=== PATIENT | female | born 1945 | race Caucasian/White ===

== ENCOUNTER 2016-12-31 17:53 | Emergency (ER) | payer MEDICARE, BC ==
[~2016-12-31] VITALS: Ht 160 cm; Wt 53.1 kg
[~2016-12-31 17:53] MED LIST: BENZ100C PO; DEXT15CA10 PO; HYDR-971 PO; ONDA4TAB10 SL; POLY119P4 PO
[2016-12-31 18:06] VITALS: BP 143/89
--- NOTE | 2016-12-31 20:33 | PHYS DOC ---
Past Medical History Past Medical History: Other Additional Past Medical Histor: lymphoma. L knee sweeling from Fall a week ago. cholecystectomy. Past Surgical History: No Surgical History Additional Past Surgical Histo: unknown back surgery Alcohol Use: None Drug Use: None Adult General Chief Complaint Chief Complaint: KNEE INJURY [facility] Patient is a 71 year old female who presents with left hand pain and left medial knee pain after a mechanical fall one week ago. States she has been able to use her extremities since that time, but has persistent mid hand pain and right medial knee pain. She denies numbness, tingling, weakness, head injury, loss of consciousness, chest pain, dyspnea, abdominal pain, neck or back pain. Review of Systems Review of Systems Constitutional: Denies fever or chills [] Eyes: Denies change in visual acuity, redness, or eye pain [] HENT: Denies nasal congestion or sore throat [] Respiratory: Denies cough or shortness of breath [] Cardiovascular: No additional information not addressed in HPI [] GI: Denies abdominal pain, nausea, vomiting, bloody stools or diarrhea [] : Denies dysuria or hematuria [] Musculoskeletal: Denies back pain or joint pain [] Integument: Denies rash or skin lesions [] Neurologic: Denies headache, focal weakness or sensory changes [] Endocrine: Denies polyuria or polydipsia [] Allergies Allergies Allergies Coded Allergies Type Severity Reaction Last Updated Verified Sulfa (Sulfonamide Antibiotics) Allergy Intermediate 06/08/16 Yes Physical Exam Physical Exam Constitutional: Well developed, well nourished, no acute distress, non-toxic appearance. [] HENT: Normocephalic, atraumatic, bilateral external ears normal, oropharynx moist, no oral exudates, nose normal. [] Eyes: PERRLA, EOMI. [] Neck: Normal range of motion, supple. [] Cardiovascular:Heart rate regular rhythm [] Lungs & Thorax: Bilateral breath sounds clear to auscultation [] Abdomen: Bowel sounds normal, soft, no tenderness. [] Skin: Warm, dry, no erythema, no rash. [] Back: No tenderness, no CVA tenderness. [] Extremities: LUE with no obvious deformity or discoloration; Has slight tenderness to mid palm with no palpable or visual abnormality; Full ROM with shoulder/elbow/wrist/ hand; Can pronate/supinate; Can make fist/ok sign/thumb up/finger cross and spread; Can flex/ex wrist; Good radial pulse and brisk cap refill equal bilaterally; sensation intact to light touch m/u/r/ax nerves LLE with no obvious deformity or discoloration; Has slight tenderness to medial knee with no visual or palpable abnormality; Able to flex/ex/IR/ER hip, knee full rom, ankle df/pf, toes df/pf; SILT maier/sa/sp/dp/tib distributions; good dp and pt pulses equal bilaterally Neurologic: Alert and oriented X 3, normal motor function, normal sensory function, no focal deficits noted. [] Psychologic: Affect normal, judgement normal, mood normal. [] Current Patient Data Vital Signs Vital Signs Date Time Temp Pulse Resp B/P Pulse Ox O2 Delivery O2 Flow Rate FiO2 12/31/16 18:06 98.0 78 16 143/89 95 Room Air 98.0 Radiology/Procedures Radiology/Procedures Left hand x-rays and left knee x-rays as interpreted by me with no acute osseous fracture or dislocation Course & Med Decision Making Course & Med Decision Making Pertinent Labs and Imaging studies reviewed. (See chart for details) She has been ambulatory in the department with steady gait. Imaging is unremarkable. Discussed symptomatic care for likely contusion. Return precautions given. She understands and agrees with plan. Dragon Disclaimer Dragon Disclaimer This electronic medical record was generated, in whole or in part, using a voice recognition dictation system. Departure Departure Impression: Primary Impression: Contusion of left knee Additional Impression: Contusion of left hand Disposition: HOME, SELF-CARE Condition: STABLE Referrals: DEYSI OROPEZA (PCP) Patient Instructions: Contusion, [id number] Additional Instructions: Follow-up with your primary care doctor. Return for any concerns. Problem Qualifiers Primary Impression: Contusion of left knee Encounter type: initial encounter Qualified Code: S80.02XA - Contusion of left knee, initial encounter Additional Impression: Contusion of left hand Encounter type: initial encounter Qualified Code: S60.222A - Contusion of left hand, initial encounter Lupillo MEDRANO MD Dec 31, 2016 20:33
--- NOTE | 2017-01-01 09:21 | RAD ---
Examination: 3 views of the left hand History: History of trauma, fall, pain. Comparison: None available Findings: The alignment of the metacarpophalangeal joints, interphalangeal grossly appears unremarkable. There is no acute fracture or dislocation identified. Impression: No acute osseous findings.
--- NOTE | 2017-01-01 09:38 | RAD ---
Examination: 3 views of the left knee History: History of fall, pain Comparison: 07/19/2016 Findings The alignment of the knee joint grossly appears unremarkable. No significant knee joint effusion identified There is no acute fracture identified. Impression No acute osseous findings.
== END 2016-12-31 20:46 | disposition home or self-care (01) ==
LOC: ER 17:53
DX: S80.02XA Contusion of left knee, initial encounter (principal); S60.222A Contusion of left hand, initial encounter; W19.XXXA Unspecified fall, initial encounter; Z88.2 Allergy status to sulfonamides; Y93.89 Activity, other specified; Y92.89 Other specified places as the place of occurrence of the external cause; Y99.8 Other external cause status
CPT/HCPCS: 73130; 73562; 99284

== ENCOUNTER 2017-02-26 12:32 | Emergency (ER) | payer MEDICARE, BC ==
[~2017-02-26] VITALS: Ht 160 cm; Wt 49.9 kg
[2017-02-26 13:07] VITALS: BP 169/87
--- NOTE | 2017-02-26 13:27 | PHYS DOC ---
Past Medical History Past Medical History: Anxiety, Cancer, Depression, Hypothyroid, Other Additional Past Medical Histor: LYMPHOMA, "VOCAL CORD ISSUES" Past Surgical History: Appendectomy, Cholecystectomy, Tonsillectomy, Other Additional Past Surgical Histo: BACK SX, CATARACT Alcohol Use: None Drug Use: None Adult General Chief Complaint Chief Complaint: FOOT INJURY PAIN [facility] HPI Patient is a 71 year old female who presents with 1 month of right great toenail thickening and yellow discoloration. States she saw chiropractor who told her to get toe evaluated. States she sees podiatry in 2 days. She denies pain, rash, swelling, injury, f/c, discharge. Review of Systems Review of Systems Constitutional: Denies fever or chills [] Eyes: Denies change in visual acuity, redness, or eye pain [] HENT: Denies nasal congestion or sore throat [] Respiratory: Denies cough or shortness of breath [] Cardiovascular: No additional information not addressed in HPI [] GI: Denies abdominal pain, nausea, vomiting, bloody stools or diarrhea [] : Denies dysuria or hematuria [] Musculoskeletal: Denies back pain or joint pain [] Integument: Denies rash or skin lesions [] Neurologic: Denies headache, focal weakness or sensory changes [] Endocrine: Denies polyuria or polydipsia [] Allergies Allergies Allergies Coded Allergies Type Severity Reaction Last Updated Verified Sulfa (Sulfonamide Antibiotics) Allergy Intermediate 06/08/16 Yes Physical Exam Physical Exam Constitutional: Well developed, well nourished, no acute distress, non-toxic appearance. [] HENT: Normocephalic, atraumatic, bilateral external ears normal, oropharynx moist, nose normal. [] Eyes: PERRLA, EOMI. [] Neck: Normal range of motion, supple. [] Cardiovascular:Heart rate regular rhythm [] Lungs & Thorax: Bilateral breath sounds clear to auscultation [] Abdomen: Bowel sounds normal, soft, no tenderness. [] Skin: Warm, dry, no erythema, no rash. [] Back: Normal ROM. [] Extremities: No tenderness, ROM intact, brisk cap refill and good dp pulse, great toenail is thick and yellow, no skin discoloration. [] Neurologic: Alert and oriented X 3, normal motor function, normal sensory function, no focal deficits noted. [] Psychologic: Affect normal, judgement normal, mood normal. [] Current Patient Data Vital Signs Vital Signs Date Time Temp Pulse Resp B/P Pulse Ox O2 Delivery O2 Flow Rate FiO2 02/26/17 13:07 97.6 86 18 169/87 96 Room Air 97.6 Course & Med Decision Making Course & Med Decision Making Discussed she should go to appointment with Podiatry in 2 days as scheduled. Return precautions given. She understands and agrees with plan. Dragon Disclaimer Dragon Disclaimer This electronic medical record was generated, in whole or in part, using a voice recognition dictation system. Departure Departure Impression: Primary Impression: Onychomycosis of right great toe Disposition: HOME, SELF-CARE Condition: STABLE Referrals: DEYSI OROPEZA (PCP) Patient Instructions: Medical Screening Exam Additional Instructions: Follow up with Podiatry clinic for further care and testing. Also follow up with your primary care doctor. Return for any concerns. Lupillo MEDRANO MD Feb 26, 2017 13:27
== END 2017-02-26 13:36 | disposition home or self-care (01) ==
LOC: ER 12:32
DX: B35.1 Tinea unguium (principal); F41.9 Anxiety disorder, unspecified; F32.9 Major depressive disorder, single episode, unspecified; E03.9 Hypothyroidism, unspecified; Z88.2 Allergy status to sulfonamides
CPT/HCPCS: 99284

== ENCOUNTER 2017-05-01 01:50 | Emergency (ER) | payer MEDICARE, BC ==
[~2017-05-01] VITALS: Ht 160 cm; Wt 52.2 kg
[~2017-05-01 01:50] MED LIST changes: -DEXT15CA10 PO; +DEXT15CA16 PO
[2017-05-01 02:00] VITALS: BP 165/78
--- NOTE | 2017-05-01 02:07 | PHYS DOC ---
Past Medical History Past Medical History: Anxiety, Cancer, Depression, Hypothyroid, Other Additional Past Medical Histor: LYMPHOMA, "VOCAL CORD ISSUES" Past Surgical History: Appendectomy, Cholecystectomy, Tonsillectomy, Other Additional Past Surgical Histo: BACK SX, CATARACT Alcohol Use: None Drug Use: None Adult General Chief Complaint Chief Complaint: MULTIPLE COMPLAINTS [facility] HPI Patient is a 71 year old female who presents with nausea vomiting diarrhea. She states she at the kitchen sponsored by the [employer] and she had some stuffing with chicken and it started getting sick right after that has had no vomiting but has had severe nausea and 3-4 episodes of liquid stools. She denies any abdominal pain, fevers chills, chest pain, shortness of breath. She states she has a history of lymphoma. Review of Systems Review of Systems Constitutional: Denies fever or chills [] Eyes: Denies change in visual acuity, redness, or eye pain [] HENT: Denies nasal congestion or sore throat [] Respiratory: Denies cough or shortness of breath [] Cardiovascular: No additional information not addressed in HPI [] GI: Denies abdominal pain, vomiting, bloody stools, positive for nausea diarrhea [] : Denies dysuria or hematuria [] Musculoskeletal: Denies back pain or joint pain [] Integument: Denies rash or skin lesions [] Neurologic: Denies headache, focal weakness or sensory changes [] Endocrine: Denies polyuria or polydipsia [] Current Medications Current Medications Current Medications Medications (Trade) Dose Ordered Sig/Quoc Start Time Stop Time Status Last Admin Dose Admin Ondansetron HCl (Zofran) 4 mg 1X ONCE 05/01/17 02:30 05/01/17 03:19 DC 05/01/17 02:34 4 MG Sodium Chloride 1,000 ml @ 1,000 mls/hr Q1H 05/01/17 02:16 05/01/17 03:19 DC 05/01/17 02:34 1,000 MLS/HR Allergies Allergies Allergies Coded Allergies Type Severity Reaction Last Updated Verified Sulfa (Sulfonamide Antibiotics) Allergy Intermediate 06/08/16 Yes Physical Exam Physical Exam Constitutional: Well developed, well nourished, no acute distress, non-toxic appearance. [] HENT: Normocephalic, atraumatic, bilateral external ears normal, oropharynx moist, no oral exudates, nose normal. [] Eyes: PERRLA, EOMI, conjunctiva normal, no discharge. [] Neck: Normal range of motion, no tenderness, supple, no stridor. [] Cardiovascular:Heart rate regular rhythm, no murmur [] Lungs & Thorax: Bilateral breath sounds clear to auscultation [] Abdomen: Bowel sounds normal, soft, no tenderness, no masses, no pulsatile masses. [] Skin: Warm, dry, no erythema, no rash. [] Back: No tenderness, no CVA tenderness. [] Extremities: No tenderness, no cyanosis, no clubbing, ROM intact, no edema. [] Neurologic: Alert and oriented X 3, normal motor function, normal sensory function, no focal deficits noted. [] Psychologic: Affect normal, judgement normal, mood normal. [] Current Patient Data Vital Signs Vital Signs Date Time Temp Pulse Resp B/P (MAP) Pulse Ox O2 Delivery O2 Flow Rate FiO2 05/01/17 02:00 98.4 77 18 165/78 (107) 98 Room Air 98.4 Lab Values Laboratory Tests Test 05/01/17 02:00 05/01/17 02:15 Urine Collection Type Unknown Urine Color Yellow Urine Clarity Clear Urine pH 8.0 Urine Specific [place] <=1.005 Urine Protein Negative mg/dL (NEG-TRACE) Urine Glucose (UA) Negative mg/dL (NEG) Urine Ketones (Stick) Negative mg/dL (NEG) Urine Blood Negative (NEG) Urine Nitrite Negative (NEG) Urine Bilirubin Negative (NEG) Urine Urobilinogen Dipstick 0.2 mg/dL (0.2 mg/dL) Urine Leukocyte Esterase Negative (NEG) Urine RBC 0 /HPF (0-2) Urine WBC 0 /HPF (0-4) Urine Squamous Epithelial Cells Occ /LPF Urine Bacteria 0 /HPF (0-FEW) White Blood Count 4.6 x10^3/uL (4.0-11.0) Red Blood Count 4.03 x10^6/uL (3.50-5.40) Hemoglobin 12.6 g/dL (12.0-15.5) Hematocrit 37.2 % (36.0-47.0) Mean Corpuscular Volume 92 fL (79-100) Mean Corpuscular Hemoglobin 31 pg (25-35) Mean Corpuscular Hemoglobin Concent 34 g/dL (31-37) Red Cell Distribution Width 13.6 % (11.5-14.5) Platelet Count 171 x10^3/uL (140-400) Neutrophils (%) (Auto) 70 % (31-73) Lymphocytes (%) (Auto) 17 % (24-48) L Monocytes (%) (Auto) 10 % (0-9) H Eosinophils (%) (Auto) 3 % (0-3) Basophils (%) (Auto) 0 % (0-3) Neutrophils # (Auto) 3.2 x10^3uL (1.8-7.7) Lymphocytes # (Auto) 0.8 x10^3/uL (1.0-4.8) L Monocytes # (Auto) 0.4 x10^3/uL (0.0-1.1) Eosinophils # (Auto) 0.2 x10^3/uL (0.0-0.7) Basophils # (Auto) 0.0 x10^3/uL (0.0-0.2) Prothrombin Time 13.4 SEC (11.7-14.0) Prothrombin Time INR 1.1 (0.8-1.1) PTT 28 SEC (24-38) Sodium Level 143 mmol/L (136-145) Potassium Level 3.8 mmol/L (3.5-5.1) Chloride Level 105 mmol/L (98-107) Carbon Dioxide Level 30 mmol/L (21-32) Anion Gap 8 (6-14) Blood Urea Nitrogen 21 mg/dL (7-20) H Creatinine 0.8 mg/dL (0.6-1.0) Estimated GFR (Cockcroft-Gault) 70.5 Glucose Level 92 mg/dL (70-99) Lactic Acid Level 0.5 mmol/L (0.4-2.0) Calcium Level 9.6 mg/dL (8.5-10.1) Total Bilirubin 0.4 mg/dL (0.2-1.0) Direct Bilirubin 0.1 mg/dL (0.0-0.2) Aspartate Amino Transferase (AST) 18 U/L (15-37) Alanine Aminotransferase (ALT) 24 U/L (14-59) Alkaline Phosphatase 94 U/L (46-116) Creatine Kinase 59 U/L (26-192) Creatine Kinase MB (Mass) 1.4 ng/mL (0.0-3.6) Creatine Kinase MB Relative Index 2.4 % (0-4) Troponin I Quantitative < 0.017 ng/mL (0.000-0.055) Total Protein 6.2 g/dL (6.4-8.2) L Albumin 3.7 g/dL (3.4-5.0) Lipase 115 U/L (73-393) Laboratory Tests 05/01/17 02:15 Laboratory Tests 05/01/17 02:15 EKG EKG EKG shows sinus rhythm with a rate of 79 bpm with left axis deviation, T-wave inversions noted in lead 3, no ST elevations noted, QTC 460 ms, EKG is unchanged since 06/08/2016, as interpreted by me. Radiology/Procedures Radiology/Procedures [] Impressions: Nausea vomiting diarrhea Course & Med Decision Making Course & Med Decision Making Pertinent Labs and Imaging studies reviewed. (See chart for details) Labs are nonacute. Patient received a liter fluids and Zofran and feels better. She's being discharged with ODT Zofran with return precautions. She is agreeable to the plan and being discharged in stable condition this time. She is to follow-up with primary care physician within next 45 days. Return ER if she has worsening diarrhea, dehydration, fevers chills or other concerns. Dragon Disclaimer Dragon Disclaimer This electronic medical record was generated, in whole or in part, using a voice recognition dictation system. Departure Departure Impression: Primary Impression: Diarrhea Disposition: 01 HOME, SELF-CARE Condition: STABLE Referrals: DEYSI OROPEZA (PCP) Patient Instructions: Diarrhea Additional Instructions: Your labs did not show any acute abnormalities. He received Zofran and IV fluids and now feel better. Your being discharged home with a prescription for Zofran. Please follow the instructions on the bottle. Return ER for uncontrolled nausea vomiting, diarrhea, fevers chills abdominal pain or other concerns. You should follow up with primary care physician within the next few days. Scripts Ondansetron (ZOFRAN ODT) 4 Mg Tab.rapdis 1 TAB SL Q8HRS Y for NAUSEA, #10 TAB Prov: RITA URIAS MD 05/01/17 Problem Qualifiers Primary Impression: Diarrhea Diarrhea type: unspecified type Qualified Codes: R19.7 - Diarrhea, unspecified RITA URIAS MD May 01, 2017 02:07
[2017-05-01] MEDS ORDERED: IV NORMAL SALINE 1000ML BAG 1,000 ML IV SCH (02:16)
[2017-05-01] MEDS ORDERED: ONDANSETRON PF 4 MG/2 ML VIAL. IV ONE (02:30)
[2017-05-01 02:50] LABS: BASO % 0 % (0-3); EOS % 3 % (0-3); HEMATOCRIT 37.2 % (36.0-47.0); HEMOGLOBIN 12.6 g/dL (12.0-15.5); LYMPH # 0.8 x10^3/uL (1.0-4.8); LYMPH % 17 % (24-48); MEAN CORPUSCULAR HEMOGLOBIN 31 pg (25-35); MEAN CORPUSCULAR HGB CONC 34 g/dL (31-37); MEAN CORPUSCULAR VOLUME 92 fL (79-100); MONO % 10 % (0-9); NEUT % 70 % (31-73); PLATELET COUNT 171 x10^3/uL (140-400); RED BLOOD COUNT 4.03 x10^6/uL (3.50-5.40); RED CELL DISTRIBUTION WIDTH 13.6 % (11.5-14.5); WHITE BLOOD COUNT 4.6 x10^3/uL (4.0-11.0)
[2017-05-01 02:51] LABS: BILIRUBIN,URINE NEGATIVE (NEG); GLUCOSE,URINE NEGATIVE (NEG); NITRITE,URINE NEGATIVE (NEG); PROTEIN,URINE NEGATIVE (NEG-TRACE); UROBILINOGEN,URINE 0.2 mg/dL (0.2 mg/dL)
[2017-05-01 02:57] LABS: BACTERIA,URINE 0 /HPF (0-FEW); RBC,URINE 0 /HPF (0-2); SQUAMOUS EPITHELIAL CELL,UR OCC /LPF; WBC,URINE 0 /HPF (0-4)
[2017-05-01 02:58] LABS: INR 1.1 (0.8-1.1); PROTHROMBIN TIME PATIENT 13.4 SEC (11.7-14.0)
[2017-05-01 03:15] LABS: CALCIUM 9.6 mg/dL (8.5-10.1); CREATININE 0.8 mg/dL (0.6-1.0); GFR 70.5; POTASSIUM 3.8 mmol/L (3.5-5.1)
[2017-05-01 03:19] LABS: ALBUMIN 3.7 g/dL (3.4-5.0); DIRECT BILIRUBIN 0.1 mg/dL (0.0-0.2); TOTAL BILIRUBIN 0.4 mg/dL (0.2-1.0); TOTAL PROTEIN 6.2 g/dL (6.4-8.2)
[2017-05-01 03:20] LABS: CKMB MASS 1.4 ng/mL (0.0-3.6)
[2017-05-01] MEDS ORDERED: ONDA4TAB10 SL (03:45)
--- NOTE | 2017-05-01 09:16 | EKG ---
[address] [place] [id number] Test Date: 2017-05-01 Test Time: 02:26:30 Pat Name: CHICHI ZHU Department: Room: Gender: F Clam Dredger: : 1945 Requested By: RITA URIAS Order Number: [id number] Reading MD: Measurements Intervals [place] Rate: 79 P: 75 SC: 192 QRS: 0 QRSD: 64 T: 16 QT: 362 QTc: 416 Interpretive Statements SINUS RHYTHM LEFT ATRIAL ABNORMALITY LEFTWARD AXIS LOW LIMB LEAD VOLTAGE QRS(T) CONTOUR ABNORMALITY CONSIDER ANTEROSEPTAL MYOCARDIAL DAMAGE RI6.01 Unconfirmed report Compared to ECG 06/08/2016 18:33:03 Atrial abnormality now present Left-axis deviation now present
== END 2017-05-01 04:15 | disposition home or self-care (01) ==
LOC: ER 01:50
DX: R19.7 Diarrhea, unspecified (principal); R11.2 Nausea with vomiting, unspecified; F41.9 Anxiety disorder, unspecified; F32.9 Major depressive disorder, single episode, unspecified; E03.9 Hypothyroidism, unspecified; Z90.49 Acquired absence of other specified parts of digestive tract; Z98.49 Cataract extraction status, unspecified eye; Z88.2 Allergy status to sulfonamides
CPT/HCPCS: 36415; 80048; 80076; 81001; 82553; 83605; 83690; 84484; 85027; 85610; 85730; 93005; 96361; 96374; 99285; J2405; J7030

== ENCOUNTER 2017-06-10 20:04 | Emergency (ER) | payer MEDICARE, BC ==
[2017-06-10] MEDS ORDERED: oxyCODONE IR 5 MG TABLET PO ONE (21:15)
--- NOTE | 2017-06-10 21:15 | PHYS DOC ---
Past Medical History Past Medical History: Anxiety, Cancer, Depression, Hypothyroid, Other Additional Past Medical Histor: LYMPHOMA, "VOCAL CORD ISSUES" Past Surgical History: Appendectomy, Cholecystectomy, Tonsillectomy, Other Additional Past Surgical Histo: BACK SX, CATARACT Alcohol Use: None Drug Use: None Adult General Chief Complaint Chief Complaint: DENTAL PROBLEM HPI HPI Patient is a 71 year old female who presents with dental pain. The patient has 3 week history of right upper dental pain. She was seen in oral surgery clinic by Dr. Palencia & they recommended extraction. She was taking amoxicillin & norco, scheduled to have extraction yesterday. For reasons she can't describe , the extraction wasn't actually performed, & she discontinued both medications because she was afraid they would interfere with anesthesia during the procedure - not because the surgeon instructed her to do so. She doesn't know if the procedure is being rescheduled. She denies fevers/chills, nausea/ vomiting, trismus, jaw swelling, abscess. Review of Systems Review of Systems Constitutional: Denies fever or chills HENT: Denies nasal congestion or sore throat, reports dental pain Respiratory: Denies cough or shortness of breath Cardiovascular: Denies chest pain GI: Denies abdominal pain, nausea, vomiting Musculoskeletal: Denies back pain or joint pain Integument: Denies rash Neurologic: Denies headache Current Medications Current Medications Current Medications Medications (Trade) Dose Ordered Sig/Quoc Start Time Stop Time Status Last Admin Dose Admin Oxycodone HCl (Roxicodone) 5 mg 1X ONCE 06/10/17 21:15 06/10/17 21:16 DC 06/10/17 21:27 5 MG Allergies Allergies Allergies Coded Allergies Type Severity Reaction Last Updated Verified Sulfa (Sulfonamide Antibiotics) Allergy Intermediate 06/08/16 Yes Physical Exam Physical Exam Constitutional: Well developed, well nourished, no acute distress, non-toxic appearance. HENT: Normocephalic, atraumatic, bilateral external ears normal, oropharynx moist, nose normal. tooth #3 with mild surrounding gingival erythema & tenderness, no abscess, no trismus, no jaw swelling Eyes: conjunctiva normal, no discharge. Cardiovascular: no edema. Lungs & Thorax: no respiratory distress. Abdomen: nondistended. Skin: Warm, dry, no erythema, no rash. Extremities: No deformity Neurologic: Alert and oriented X 3 Current Patient Data Vital Signs Vital Signs Date Time Temp Pulse Resp B/P (MAP) Pulse Ox O2 Delivery O2 Flow Rate FiO2 06/10/17 21:34 98.1 87 20 123/59 (80) 100 Room Air 98.1 EKG EKG [] Radiology/Procedures Radiology/Procedures [] Course & Med Decision Making Course & Med Decision Making Pertinent Labs and Imaging studies reviewed. (See chart for details) The patient presents with dental pain. She is well-appearing and has already established care with oral surgery. She has poor understanding of her condition and the plan for care but I find no indication for further workup here. Recommended that she resume the antibiotics and pain medications prescribed by her oral surgeon. She received a single dose of oxycodone here in the emergency department. Recommend that she call the oral surgery clinic on Monday for further instructions and possibly to reschedule her surgery. She is instructed to return to the emergency department for difficulty breathing or swallowing, or any otherwise worsening condition. She is being discharged home in stable condition. [] Dragon Disclaimer Dragon Disclaimer This electronic medical record was generated, in whole or in part, using a voice recognition dictation system. Departure Departure Impression: Primary Impression: Pain, dental Disposition: 01 HOME, SELF-CARE Condition: STABLE Referrals: DEYSI OROPEZA (PCP) GUANACO PALENCIA Jr DDS Patient Instructions: Dental Pain, [id number] Additional Instructions: You were seen in the emergency department today for dental pain. Please finish taking the antibiotics prescribed by the oral surgeon. Take pain medication as prescribed. Also consider applying ice packs to your jaw. Call Dr. Palencia's clinic on Monday to request an appointment. Return to the emergency department for difficulty breathing or swallowing, or otherwise worsening condition. JORGE FRANCO MD Jun 10, 2017 21:15
[2017-06-10 21:34] VITALS: BP 123/59
== END 2017-06-10 21:34 | disposition home or self-care (01) ==
LOC: ER 20:04
DX: K08.89 Other specified disorders of teeth and supporting structures (principal); F41.9 Anxiety disorder, unspecified; F32.9 Major depressive disorder, single episode, unspecified; E03.9 Hypothyroidism, unspecified; Z90.49 Acquired absence of other specified parts of digestive tract; Z88.2 Allergy status to sulfonamides; Z98.49 Cataract extraction status, unspecified eye
CPT/HCPCS: 99282

== ENCOUNTER 2017-07-15 11:23 | Emergency (ER) | payer MEDICARE, BC ==
[~2017-07-15] VITALS: Ht 160 cm; Wt 49.9 kg
[2017-07-15 12:34] LABS: BILIRUBIN,URINE NEGATIVE (NEG); GLUCOSE,URINE NEGATIVE (NEG); NITRITE,URINE NEGATIVE (NEG); PROTEIN,URINE NEGATIVE (NEG-TRACE); UROBILINOGEN,URINE 0.2 mg/dL (0.2 mg/dL)
[2017-07-15 12:36] LABS: BASO % 0 % (0-3); EOS % 3 % (0-3); HEMATOCRIT 36.8 % (36.0-47.0); HEMOGLOBIN 12.4 g/dL (12.0-15.5); LYMPH # 0.8 x10^3/uL (1.0-4.8); LYMPH % 19 % (24-48); MEAN CORPUSCULAR HEMOGLOBIN 31 pg (25-35); MEAN CORPUSCULAR HGB CONC 34 g/dL (31-37); MEAN CORPUSCULAR VOLUME 93 fL (79-100); MONO % 8 % (0-9); NEUT % 70 % (31-73); PLATELET COUNT 201 x10^3/uL (140-400); RED BLOOD COUNT 3.98 x10^6/uL (3.50-5.40); RED CELL DISTRIBUTION WIDTH 13.6 % (11.5-14.5); WHITE BLOOD COUNT 4.4 x10^3/uL (4.0-11.0)
[2017-07-15 12:37] LABS: CALCIUM 8.9 mg/dL (8.5-10.1); CREATININE 0.9 mg/dL (0.6-1.0); GFR 61.5; POTASSIUM 4.7 mmol/L (3.5-5.1)
[2017-07-15 12:44] LABS: ALBUMIN 3.6 g/dL (3.4-5.0); ALBUMIN/GLOBULIN RATIO 1.1 (1.0-1.7); TOTAL BILIRUBIN 0.3 mg/dL (0.2-1.0); TOTAL PROTEIN 6.8 g/dL (6.4-8.2)
[2017-07-15 12:47] LABS: BACTERIA,URINE 0 /HPF (0-FEW); RBC,URINE OCC /HPF (0-2); SQUAMOUS EPITHELIAL CELL,UR MOD /LPF
[2017-07-15 12:56] LABS: OBC FLU VALID
--- NOTE | 2017-07-15 13:48 | RAD ---
Chest radiograph 07/15/2017 3:10 PM Indication: Cough and shortness of breath Comparison: Chest radiograph 07/19/2016 Technique: Single portable upright frontal view of the chest is provided. Findings: Cardiomediastinal silhouette is within normal limits. No pleural effusions, pulmonary vascular congestion or pneumothorax. There is suggestion of a 4 mm calcified granuloma in the right upper lobe. The lungs are clear. There is mild dextroconvex curvature of the thoracic spine. Impression: No acute cardiopulmonary process.
[2017-07-15 14:40] VITALS: BP 137/82
--- NOTE | 2017-07-15 14:46 | PHYS DOC ---
Past Medical History Past Medical History: Anxiety, Cancer, Depression, Hypothyroid, Other Additional Past Medical Histor: LYMPHOMA, "VOCAL CORD ISSUES" Past Surgical History: Appendectomy, Cholecystectomy, Tonsillectomy, Other Additional Past Surgical Histo: BACK SX, CATARACT Alcohol Use: None Drug Use: None Adult General Chief Complaint Chief Complaint: FLU SYMPTOM HPI HPI Patient is a 71 year old known presents to nasal congestion, cough, postnasal drip for the past 10 days. Denies fever, chills, nausea vomiting and sweats. No history of asthma COPD or congestive heart failure. Denies increased leg pain or swelling. No other acute symptoms or complaints. She has not been evaluated for this complaint prior to her ER visit today. She is a nonsmoker. Review of Systems Review of Systems Review of symptoms as per history of present illness. All other review symptoms are negative. Allergies Allergies Allergies Coded Allergies Type Severity Reaction Last Updated Verified Sulfa (Sulfonamide Antibiotics) Allergy Intermediate 06/08/16 Yes Physical Exam Physical Exam Constitutional: Well developed, well nourished, no acute distress, non-toxic appearance. [] HENT: Normocephalic, atraumatic, bilateral external ears normal, oropharynx moist, nose, clear rhinorrhea . [] Eyes: PERRLA, EOMI, conjunctiva normal.. [] Neck: Normal range of motion, no tenderness. [] Cardiovascular:Heart rate regular rhythm, no murmur [] Lungs & Thorax: Respirations nonlabored, coarse rhonchi bilaterally, otherwise clear. [] Abdomen: Bowel sounds normal, soft, no tenderness, no masses, no pulsatile masses. [] Skin: Warm, dry, no erythema, no rash. [] Back: No tenderness. [] Extremities: No tenderness. [] Neurologic: Alert and oriented, normal motor function, normal sensory function, no focal deficits noted. [] Psychologic: Affect, anxious. [] Current Patient Data Vital Signs Vital Signs Date Time Temp Pulse Resp B/P (MAP) Pulse Ox O2 Delivery O2 Flow Rate FiO2 07/15/17 11:40 98.8 96 18 133/68 (89) 97 Room Air 98.8 Lab Values Laboratory Tests Test 07/15/17 12:19 07/15/17 12:28 White Blood Count 4.4 x10^3/uL (4.0-11.0) Red Blood Count 3.98 x10^6/uL (3.50-5.40) Hemoglobin 12.4 g/dL (12.0-15.5) Hematocrit 36.8 % (36.0-47.0) Mean Corpuscular Volume 93 fL (79-100) Mean Corpuscular Hemoglobin 31 pg (25-35) Mean Corpuscular Hemoglobin Concent 34 g/dL (31-37) Red Cell Distribution Width 13.6 % (11.5-14.5) Platelet Count 201 x10^3/uL (140-400) Neutrophils (%) (Auto) 70 % (31-73) Lymphocytes (%) (Auto) 19 % (24-48) L Monocytes (%) (Auto) 8 % (0-9) Eosinophils (%) (Auto) 3 % (0-3) Basophils (%) (Auto) 0 % (0-3) Neutrophils # (Auto) 3.1 x10^3uL (1.8-7.7) Lymphocytes # (Auto) 0.8 x10^3/uL (1.0-4.8) L Monocytes # (Auto) 0.3 x10^3/uL (0.0-1.1) Eosinophils # (Auto) 0.1 x10^3/uL (0.0-0.7) Basophils # (Auto) 0.0 x10^3/uL (0.0-0.2) Sodium Level 143 mmol/L (136-145) Potassium Level 4.7 mmol/L (3.5-5.1) Chloride Level 105 mmol/L (98-107) Carbon Dioxide Level 32 mmol/L (21-32) Anion Gap 6 (6-14) Blood Urea Nitrogen 26 mg/dL (7-20) H Creatinine 0.9 mg/dL (0.6-1.0) Estimated GFR (Cockcroft-Gault) 61.5 BUN/Creatinine Ratio 29 (6-20) H Glucose Level 114 mg/dL (70-99) H Calcium Level 8.9 mg/dL (8.5-10.1) Total Bilirubin 0.3 mg/dL (0.2-1.0) Aspartate Amino Transferase (AST) 19 U/L (15-37) Alanine Aminotransferase (ALT) 33 U/L (14-59) Alkaline Phosphatase 97 U/L (46-116) Total Protein 6.8 g/dL (6.4-8.2) Albumin 3.6 g/dL (3.4-5.0) Albumin/Globulin Ratio 1.1 (1.0-1.7) Influenza Type A Antigen Negative (NEGATIVE) Influenza Type B Antigen Negative (NEGATIVE) Urine Collection Type Unknown Urine Color Yellow Urine Clarity Cloudy Urine pH 6.0 Urine Specific [place] 1.020 Urine Protein Negative mg/dL (NEG-TRACE) Urine Glucose (UA) Negative mg/dL (NEG) Urine Ketones (Stick) Negative mg/dL (NEG) Urine Blood Negative (NEG) Urine Nitrite Negative (NEG) Urine Bilirubin Negative (NEG) Urine Urobilinogen Dipstick 0.2 mg/dL (0.2 mg/dL) Urine Leukocyte Esterase Negative (NEG) Urine RBC Occ /HPF (0-2) Urine WBC 1-4 /HPF (0-4) Urine Squamous Epithelial Cells Mod /LPF Urine Bacteria 0 /HPF (0-FEW) Urine Mucus Mod /LPF Laboratory Tests 07/15/17 12:19 Laboratory Tests 07/15/17 12:19 EKG EKG [] Radiology/Procedures Radiology/Procedures [Chest x-ray: No acute cardiopulmonary disease.] Course & Med Decision Making Course & Med Decision Making Pertinent Labs and Imaging studies reviewed. (See chart for details) [Patient with nasal congestion, postnasal drip productive cough with clear yellow sputum. No fever chills or sweats. Normal white blood cell count. No evidence of pneumonia. Antibiotics, supportive treatment recommended with PCP follow-up. Return precautions reviewed.] Dragon Disclaimer Dragon Disclaimer This electronic medical record was generated, in whole or in part, using a voice recognition dictation system. Departure Departure Impression: Primary Impression: Seasonal allergies Additional Impression: Acute bronchitis Disposition: 01 HOME, SELF-CARE Condition: GOOD Patient Instructions: Allergic Rhinitis, Acute Bronchitis Additional Instructions: Please take medications as directed and follow-up with your PCP in 3-5 days for reevaluation Problem Qualifiers TANISHA MONTANO DO Jul 15, 2017 14:46
== END 2017-07-15 14:58 | disposition home or self-care (01) ==
LOC: ER 11:23
DX: J20.9 Acute bronchitis, unspecified (principal); J30.2 Other seasonal allergic rhinitis; E03.9 Hypothyroidism, unspecified; Z85.72 Personal history of non-Hodgkin lymphomas; Z90.89 Acquired absence of other organs; Z88.2 Allergy status to sulfonamides
CPT/HCPCS: 36415; 71010; 80053; 81001; 85025; 87804; 99285-25

== ENCOUNTER 2017-10-18 14:34 | Emergency (ER) | payer MEDICARE, BC ==
[~2017-10-18] VITALS: Ht 160 cm; Wt 59.0 kg
--- NOTE | 2017-10-18 15:17 | PHYS DOC ---
Past Medical History Past Medical History: Anxiety, Cancer, Depression, Hypothyroid, Other Additional Past Medical Histor: LYMPHOMA, "VOCAL CORD ISSUES" Past Surgical History: Appendectomy, Cholecystectomy, Tonsillectomy, Other Additional Past Surgical Histo: BACK SX, CATARACT, SKIN CA REMOVAL 09/2017 Alcohol Use: None Drug Use: None Adult General Chief Complaint Chief Complaint: PAIN CONTROL HPI HPI Patient is a 72 year old female presenting to the emergency department for evaluation of right eyebrow pain over a skin lesion which appears to be a seborrhea. She says that this pain has been going on for at least 8 months and she is very upset with her wet and dry sugar bin operator as she has seen him 3 times and the wet and dry sugar bin operator at continues to refuse to remove the seborrhea. She says that she saw him on October 10 that he sprayed nitrogen on her eyebrow and she has been having worsening pain at the site ever since then however there has been no redness swelling fevers chills nausea vomiting. Patient also says that she has been having a cough for the past 8 days as well that is nonproductive. She says it feels like she has a sore throat and something is caught in her throat and she does have a continuous clearing of her throat but not necessarily a cough. Patient appears to have been seen for this chronic cough before in the past. Review of Systems Review of Systems Constitutional: Denies fever or chills [] HENT: + nasal congestion, sore throat [] Respiratory: + cough. No shortness of breath [] Integument:+ skin lesions [] Neurologic: Denies headache, focal weakness or sensory changes [] All other systems were reviewed and found to be within normal limits, except as documented in this note. Current Medications Current Medications Current Medications Medications (Trade) Dose Ordered Sig/Quoc Start Time Stop Time Status Last Admin Dose Admin Dexamethasone (Decadron) 10 mg 1X STAT 10/18/17 16:21 10/18/17 16:22 DC Promethazine HCl/ Codeine (Phenergan With Codeine) 5 ml 1X ONCE 10/18/17 15:30 10/18/17 15:31 DC 10/18/17 15:40 5 ML Allergies Allergies Allergies Coded Allergies Type Severity Reaction Last Updated Verified Sulfa (Sulfonamide Antibiotics) Allergy Intermediate 06/08/16 Yes Physical Exam Physical Exam Constitutional: Well developed, well nourished, no acute distress, non-toxic appearance. [] HENT: Normocephalic, atraumatic, bilateral external ears normal, oropharynx moist, no oral exudates, nose normal. [] Neck: Normal range of motion, no tenderness, supple, no stridor. [] Cardiovascular:Heart rate regular rhythm, no murmur [] Lungs & Thorax: Bilateral breath sounds clear to auscultation [] Abdomen: Bowel sounds normal, soft, no tenderness, no masses, no pulsatile masses. [] Skin: Small seborrhea in her right inferior eyebrow with no surrounding erythema swelling or pain to palpation. Right cheek with larger seborrhea with no concerning findings. No facial tenderness to palpation Back: No tenderness, no CVA tenderness. [] Extremities: No tenderness, no cyanosis, no clubbing, ROM intact, no edema. [] Neurologic: Alert and oriented X 3, normal motor function, normal sensory function, no focal deficits noted. [] Current Patient Data Vital Signs Vital Signs Date Time Temp Pulse Resp B/P (MAP) Pulse Ox O2 Delivery O2 Flow Rate FiO2 10/18/17 14:35 98.1 93 20 97 Room Air 98.1 EKG EKG [] Radiology/Procedures Radiology/Procedures PA and lateral views of the chest were obtained. History: Cough and choking sensation Comparison: July 15, 2017 The heart and pulmonary vasculature appear within normal limits. The lungs are hyperinflated. A few linear opacities in the right lung base medially is likely discoid atelectasis. The pleural margins are clear. Impression: 1. No acute chest process is seen. DICTATED and SIGNED BY: CARLOS CASTILLO III, MD DATE: 10/18/17 3664 2 view soft tissue neck History: Cough and choking sensation AP and lateral views of the neck were obtained with soft tissue technique. There is tapering of the trachea on the AP view. The epiglottis appears normal. There is no prevertebral soft tissue swelling. Impression: Subglottic edema likely secondary to viral upper respiratory infection. Clinical correlation is suggested. DICTATED and SIGNED BY: CARLOS CASTILLO III, MD DATE: 10/18/17 4843 Course & Med Decision Making Course & Med Decision Making Patient with 2 complaints I told her that I could not remove her skin lesions in the emergency room but I told her I could do a chest x-ray and neck x-ray and then be re-evaluated. Patient is requesting Phenergan With Codeine. Patient with normal chest x-ray have her neck x-ray shows some subglottic edema. She has no stridor on exam and she can breathe and swallow with no difficulty. Patient was seen for similar reason in June and she says that she has seen multiple ENT physicians for her coughing and choking sensation. I told her that we will give her a dose of Decadron here to decrease the swelling and then start her on 5 days of Augmentin start her on Nasonex [id number] as well and have her follow with the ENT doctor within the next 1-2 days. She was told to call today and to come back to the ED sooner with worsening pain shortness of breath or other general concerns. He shouldn't aware and agreeable with plan for discharge and verbalized understanding of the need for short-term follow-up and strict ED return precautions discussed as above. Dragon Disclaimer Dragon Disclaimer This electronic medical record was generated, in whole or in part, using a voice recognition dictation system. Departure Departure Impression: Primary Impression: Cough Additional Impressions: Seborrhea Subglottic edema Disposition: 01 HOME, SELF-CARE Condition: STABLE Referrals: BREONNA VILLALOBOS MD Patient Instructions: Seborrheic Keratosis Additional Instructions: FOLLOW WITH THE ENT. COME BACK TO THE ED WITH WORSENING PAIN, SOA, OR OTHER GENERAL CONCERNS. THANK YOU! Scripts Amoxicillin/Potassium Clav (AUGMENTIN 875-125 TABLET) 1 Each Tablet 1 TAB PO BID, #10 TAB Prov: LEMUEL FLAHERTY DO 10/18/17 Problem Qualifiers LEMUEL FLAHERTY DO Oct 18, 2017 15:17
[2017-10-18] MEDS ORDERED: PROMETH/CODEINE 6.25/10MG 5 ML SYRUP. PO ONE (15:30)
--- NOTE | 2017-10-18 15:51 | RAD ---
PA and lateral views of the chest were obtained. History: Cough and choking sensation Comparison: July 15, 2017 The heart and pulmonary vasculature appear within normal limits. The lungs are hyperinflated. A few linear opacities in the right lung base medially is likely discoid atelectasis. The pleural margins are clear. Impression: 1. No acute chest process is seen.
--- NOTE | 2017-10-18 15:52 | RAD ---
2 view soft tissue neck History: Cough and choking sensation AP and lateral views of the neck were obtained with soft tissue technique. There is tapering of the trachea on the AP view. The epiglottis appears normal. There is no prevertebral soft tissue swelling. Impression: Subglottic edema likely secondary to viral upper respiratory infection. Clinical correlation is suggested.
[2017-10-18] MEDS ORDERED: DEXAMETHASONE 4 MG TABLET PO STA (16:21)
[2017-10-18] MEDS ORDERED: AMOX1TAB61 PO (16:28)
[2017-10-18 17:00] VITALS: BP 118/61
== END 2017-10-18 17:18 | disposition home or self-care (01) ==
LOC: ER 14:34
DX: R05 Cough (principal); L21.9 Seborrheic dermatitis, unspecified; J38.4 Edema of larynx; E03.9 Hypothyroidism, unspecified; Z85.72 Personal history of non-Hodgkin lymphomas; Z88.2 Allergy status to sulfonamides
CPT/HCPCS: 70360; 71020; 99284; J8540

== ENCOUNTER 2018-02-14 12:14 | Emergency (ER) | payer MEDICARE, BC ==
[2018-02-14 14:05] LABS: ADD MAN DIFF? NO
[2018-02-14 14:08] LABS: BASO % 0 % (0-3); EOS # 0.1 x10^3/uL (0.0-0.7); EOS % 1 % (0-3); HEMATOCRIT 43.1 % (36.0-47.0); HEMOGLOBIN 14.5 g/dL (12.0-15.5); LYMPH # 0.7 x10^3/uL (1.0-4.8); LYMPH % 14 % (24-48); MEAN CORPUSCULAR HEMOGLOBIN 31 pg (25-35); MEAN CORPUSCULAR HGB CONC 34 g/dL (31-37); MEAN CORPUSCULAR VOLUME 92 fL (79-100); MONO # 0.3 x10^3/uL (0.0-1.1); MONO % 7 % (0-9); NEUT # 3.8 x10^3uL (1.8-7.7); NEUT % 77 % (31-73); PLATELET COUNT 176 x10^3/uL (140-400); RED BLOOD COUNT 4.66 x10^6/uL (3.50-5.40); RED CELL DISTRIBUTION WIDTH 13.8 % (11.5-14.5); WHITE BLOOD COUNT 4.9 x10^3/uL (4.0-11.0)
[2018-02-14 14:17] LABS: C-REACTIVE PROTEIN 2.2 mg/L (0-3.3)
[2018-02-14] MEDS: ACETAMINOPHEN 500 MG TABLET PO (14:48)
[2018-02-14 15:09] LABS: SEDIMENTATION RATE 7 (0-25)
== END 2018-02-14 14:45 | disposition home or self-care (01) ==
LOC: ER 12:14
DX: M19.042 Primary osteoarthritis, left hand (principal); F41.9 Anxiety disorder, unspecified; E03.9 Hypothyroidism, unspecified; I10 Essential (primary) hypertension; F32.9 Major depressive disorder, single episode, unspecified; I95.9 Hypotension, unspecified; Z88.2 Allergy status to sulfonamides; Z90.49 Acquired absence of other specified parts of digestive tract; Z85.72 Personal history of non-Hodgkin lymphomas; Z98.49 Cataract extraction status, unspecified eye
CPT/HCPCS: 36415; 73130; 85025; 85651; 86140; 99285

== ENCOUNTER 2018-03-29 10:05 | Emergency (ER) | payer MEDICARE, BC | END 2018-03-29 11:18 | disposition home or self-care (01) | LOC: ER 11:18 | DX: R21 Rash and other nonspecific skin eruption (principal); E03.9 Hypothyroidism, unspecified; Z85.72 Personal history of non-Hodgkin lymphomas; Z88.2 Allergy status to sulfonamides | CPT/HCPCS: 99283 ==

== ENCOUNTER 2018-12-27 12:46 | Emergency (ER) | payer MEDICARE, BC ==
[~2018-12-27] VITALS: Ht 160 cm; Wt 54.4 kg
[~2018-12-27 12:46] MED LIST changes: +ACET325T9 PO; +AMOX1TAB61 PO; +HYDR-3164 PO; -HYDR-971 PO; +TRIA15OI TP
[2018-12-27 13:20] VITALS: BP 168/76
--- NOTE | 2018-12-27 13:45 | PHYS DOC ---
Past Medical History Past Medical History: Anxiety, Cancer, Depression, Hypothyroid, Other Additional Past Medical Histor: LYMPHOMA, "VOCAL CORD ISSUES" Past Surgical History: Appendectomy, Cholecystectomy, Tonsillectomy, Other Additional Past Surgical Histo: BACK SX, CATARACT, SKIN CA REMOVAL 09/2017 Alcohol Use: None Drug Use: None Adult General Chief Complaint Chief Complaint: FLU SYMPTOM HPI HPI Patient is a 73 year old female who presents with cough and congestion for 1-1/ 2 weeks. Patient denies any fever. She states she believes she has influenza. She states she had flu shot last May. Review of Systems Review of Systems Constitutional: Denies fever or chills [] Eyes: Denies change in visual acuity, redness, or eye pain [] HENT: Reports nasal congestion, denies sore throat [] Respiratory: Reports cough, denies shortness of breath [] Cardiovascular: No additional information not addressed in HPI [] GI: Denies abdominal pain, nausea, vomiting, bloody stools or diarrhea [] : Denies dysuria or hematuria [] Musculoskeletal: Denies back pain or joint pain [] Integument: Denies rash or skin lesions [] Neurologic: Denies headache, focal weakness or sensory changes [] All other systems were reviewed and found to be within normal limits, except as documented in this note. Allergies Allergies Allergies Coded Allergies Type Severity Reaction Last Updated Verified Sulfa (Sulfonamide Antibiotics) Allergy Intermediate 06/08/16 Yes Physical Exam Physical Exam Constitutional: Well developed, well nourished, no acute distress, non-toxic appearance. [] HENT: Normocephalic, atraumatic, bilateral external ears normal, oropharynx moist, no oral exudates, nose normal. [] Eyes: PERRLA, EOMI, conjunctiva normal, no discharge. [] Neck: Normal range of motion, no tenderness, supple, no stridor. [] Cardiovascular:Heart rate regular rhythm, no murmur [] Lungs & Thorax: Bilateral breath sounds clear to auscultation [] Abdomen: Bowel sounds normal, soft, no tenderness, no masses, no pulsatile masses. [] Skin: Warm, dry, no erythema, no rash. [] Back: No tenderness, no CVA tenderness. [] Extremities: No tenderness, no cyanosis, no clubbing, ROM intact, no edema. [] Neurologic: Alert and oriented X 3, normal motor function, normal sensory function, no focal deficits noted. [] Psychologic: Affect normal, judgement normal, mood normal. [] Current Patient Data Vital Signs Vital Signs Date Time Temp Pulse Resp B/P (MAP) Pulse Ox O2 Delivery O2 Flow Rate FiO2 12/27/18 13:20 99.1 78 18 168/76 (106) 99 Room Air 99.1 Lab Values Laboratory Tests Test 12/27/18 13:30 Influenza Type A Antigen Negative (NEGATIVE) Influenza Type B Antigen Negative (NEGATIVE) EKG EKG [] Radiology/Procedures Radiology/Procedures []PROCEDURE: CHEST PA & LATERAL AP and Lateral Views of the Chest 12/27/2018 1:41 PM Indication: COUGH Comparison: Two-view chest radiograph October 18, 2017 Findings: No pneumothorax or pleural effusion is seen. No focal consolidative infiltrate is identified. Mild interstitial coarsening is seen. Mild apical scarring is seen on the right. No acute osseous changes are noted in the interim. Aortic tortuosity noted. IMPRESSION: No evidence of acute cardiopulmonary abnormality is identified. Electronically signed by: Porfirio Orozco MD (12/27/2018 2:16 PM) [id number] DICTATED and SIGNED BY: PORFIRIO OROZCO MD DATE: 12/27/18 1413 Course & Med Decision Making Course & Med Decision Making Pertinent Labs and Imaging studies reviewed. (See chart for details) This is a 73-year-old female patient presenting to the ED today with cough and nasal congestion for 1-1/2 weeks. Temperature on arrival to the ED 99.1. Heart rate 78. Respiration 18-20 room air. He chest x-ray is negative for any acute findings, patient is negative for influenza A or B. Patient was discharged to home. Follow-up with PCP in the course of next week. Considering has slight temp of 99.1, history of cancer, patient will be discharged with doxycycline Dragon Disclaimer Dragon Disclaimer This electronic medical record was generated, in whole or in part, using a voice recognition dictation system. Departure Departure Impression: Primary Impression: Bronchitis Additional Impression: URI (upper respiratory infection) Disposition: HOME, SELF-CARE Condition: STABLE Referrals: DEYSI OROPEZA (PCP) follow up in one week Patient Instructions: Acute Bronchitis, Upper Respiratory Infection, Adult Additional Instructions: You were evaluated in the emergency room for acute bronchitis and an upper respiratory infection, we put you on medications, take them as prescribed. Follow-up with your doctor in 1-2 weeks. Scripts Promethazine HCl/Codeine (Prometh-Codein 6.25-10 mg/5 ml) 5 Ml Syrup 5 ML PO Q6-8HRS PRN for COUGH, #80 MISC Prov: FABIOLA BALL APRN 12/27/18 Albuterol Sulfate (VENTOLIN HFA INHALER) 18 Gm Hfa.aer.ad 2 PUFF INH Q4HRS for FOR ASTHMA, #1 INHALER 0 Refills Prov: FABIOLA BALL APRN 12/27/18 Doxycycline Hyclate (DOXYCYCLINE HYCLATE) 100 Mg Tablet.dr 1 TAB PO BID, #14 TAB Prov: FABIOLA BALL APRN 12/27/18 Problem Qualifiers Additional Impression: URI (upper respiratory infection) URI type: unspecified URI Qualified Codes: J06.9 - Acute upper respiratory infection, unspecified FABIOLA BALL APRN Dec 27, 2018 13:45
[2018-12-27 14:18] LABS: INFLUENZA A PATIENT NEGATIVE (NEGATIVE); INFLUENZA B PATIENT NEGATIVE (NEGATIVE)
--- NOTE | 2018-12-27 14:19 | RAD ---
AP and Lateral Views of the Chest 12/27/2018 1:41 PM Indication: COUGH Comparison: Two-view chest radiograph October 18, 2017 Findings: No pneumothorax or pleural effusion is seen. No focal consolidative infiltrate is identified. Mild interstitial coarsening is seen. Mild apical scarring is seen on the right. No acute osseous changes are noted in the interim. Aortic tortuosity noted. IMPRESSION: No evidence of acute cardiopulmonary abnormality is identified. Electronically signed by: Porfirio De La Cruz MD (12/27/2018 2:16 PM) [facility]
[2018-12-27] MEDS ORDERED: VENTOLIN HFA18 GM INH (14:51)
[2018-12-27] MEDS ORDERED: PROM5SYR2 PO (14:51)
[2018-12-27] MEDS ORDERED: DOXY100T9 PO (14:51)
== END 2018-12-27 15:15 | disposition home or self-care (01) ==
LOC: ER 12:46
DX: J40 Bronchitis, not specified as acute or chronic (principal); J06.9 Acute upper respiratory infection, unspecified; E03.9 Hypothyroidism, unspecified; Z88.2 Allergy status to sulfonamides
CPT/HCPCS: 71046; 87804; 99284

== ENCOUNTER 2019-03-30 12:46 | Emergency (ER) | payer MEDICARE, BC ==
[~2019-03-30] VITALS: Ht 160 cm; Wt 54.9 kg
[~2019-03-30 12:46] MED LIST changes: +DOXY100T9 PO; +PROM5SYR2 PO; +VENTOLIN HFA18 GM INH
[2019-03-30 12:49] VITALS: BP 188/89
--- NOTE | 2019-03-30 13:58 | PHYS DOC ---
Past Medical History Past Medical History: Anxiety, Cancer, Depression, Hypothyroid, Schizophrenia, Other Additional Past Medical Histor: LYMPHOMA, "VOCAL CORD ISSUES",EXTRAPYRAMIDAL MOVEMENTS Past Surgical History: Appendectomy, Cholecystectomy, Tonsillectomy, Other Additional Past Surgical Histo: BACK SX, CATARACT, SKIN CA REMOVAL 09/2017 Alcohol Use: None Drug Use: None Adult General Chief Complaint Chief Complaint: EYE PROBLEMS [facility] HPI Patient is a 73 year old female who presents with complaining of left eye redness and discharge. Patient has had chronic bilateral eye problems including blepharitis, dry eye syndrome and currently taking 4 ophthalmic medication. Patient complaining of left eye redness and discharge for one week that didn't get better with taking her current ophthalmic medication. Patient applying erythromycin ointment under her eye on eyelid area without improvement of her condition. Patient has history of anxiety and talking for long-term about her eye problem. Review of Systems Review of Systems Constitutional: Denies fever or chills [] Eyes: Denies change in visual acuity, reports redness, eye pain [] HENT: Denies nasal congestion or sore throat [] Respiratory: Denies cough or shortness of breath [] Cardiovascular: No additional information not addressed in HPI [] GI: Denies abdominal pain, nausea, vomiting, bloody stools or diarrhea [] : Denies dysuria or hematuria [] Musculoskeletal: Denies back pain or joint pain [] Integument: Denies rash or skin lesions [] Neurologic: Denies headache, focal weakness or sensory changes [] Endocrine: Denies polyuria or polydipsia [] All other systems were reviewed and found to be within normal limits, except as documented in this note. Allergies Allergies Allergies Coded Allergies Type Severity Reaction Last Updated Verified Sulfa (Sulfonamide Antibiotics) Allergy Intermediate 06/08/16 Yes Physical Exam Physical Exam Constitutional: Well d nourished, mild distress, non-toxic appearance. [] HENT: Normocephalic, atraumatic Eyes: PERRLA, EOMI, left eyelid with erythema and mild edema, no conjunctival erythema or eye globe tenderness Neck: Normal range of motion, no tenderness, supple, no stridor. [] Cardiovascular:Heart rate regular rhythm, no murmur [] Lungs & Thorax: Bilateral breath sounds clear to auscultation [] Extremities: No tenderness, no cyanosis, no clubbing, ROM intact, no edema. [] Neurologic: Alert and oriented X 3, normal motor function, normal sensory function, no focal deficits noted. [] Psychologic: Affect anxious Current Patient Data Vital Signs Vital Signs Date Time Temp Pulse Resp B/P (MAP) Pulse Ox O2 Delivery O2 Flow Rate FiO2 03/30/19 12:49 98.2 77 14 188/89 (122) 98 Room Air 98.2 EKG EKG [] Radiology/Procedures Radiology/Procedures [] Course & Med Decision Making Course & Med Decision Making Evaluation of patient in ER showed 73-year-old female patient with extensive long time eye problems presented to ER with complaining of left eyelid erythema and edema. Patient has prescribed erythromycin ointment but applying on her face instead of her eye and was advised to apply medication on her eye and follow up with manager psychiatry. Dragon Disclaimer Dragon Disclaimer This electronic medical record was generated, in whole or in part, using a voice recognition dictation system. Departure Departure Impression: Primary Impression: Blepharitis of both upper and lower eyelid of left eye Additional Impression: Anxiety Disposition: 01 HOME, SELF-CARE (@1139) Condition: STABLE Referrals: DEYSI OROPEZA (PCP) Patient Instructions: Blepharitis Additional Instructions: Continue current medication Apply erythromycin eye ointment inside of your eye, not around your eye Follow-up with your eye physician in 2 days Return to ER if not getting better Problem Qualifiers Primary Impression: Blepharitis of both upper and lower eyelid of left eye Blepharitis type: unspecified type Qualified Codes: H01.00B - Unspecified blepharitis left eye, upper and lower eyelids CHATO SALVADOR MD Mar 30, 2019 13:57
== END 2019-03-30 14:20 | disposition home or self-care (01) ==
LOC: ER 12:46
DX: H01.00B Unspecified blepharitis left eye, upper and lower eyelids (principal); F41.9 Anxiety disorder, unspecified; E03.9 Hypothyroidism, unspecified; F20.9 Schizophrenia, unspecified; Z88.2 Allergy status to sulfonamides
CPT/HCPCS: 99284

== ENCOUNTER 2019-06-09 14:12 | Emergency (ER) | payer MEDICARE, BC ==
[~2019-06-09] VITALS: Ht 162.6 cm; Wt 54.9 kg
[2019-06-09 14:25] VITALS: BP 174/89
[2019-06-09] MEDS ORDERED: TOBR5DRO6 OD (14:44)
--- NOTE | 2019-06-09 14:44 | PHYS DOC ---
Past Medical History Past Medical History: Anxiety, Cancer, Depression, Hypothyroid, Schizophrenia, Other Additional Past Medical Histor: LYMPHOMA, "VOCAL CORD ISSUES",EXTRAPYRAMIDAL MOVEMENTS Past Surgical History: Appendectomy, Cholecystectomy, Tonsillectomy, Other Additional Past Surgical Histo: BACK SX, CATARACT, SKIN CA REMOVAL 09/2017 Alcohol Use: None Drug Use: None Adult General Chief Complaint Chief Complaint: EYE PROBLEMS HPI HPI Patient is a 73-year-old female who presents to the ED today complaining of right eye drainage that has been going on for couple days, patient does not have a clear recollection of how long this has been going on for. She states this morning she woke up in her right eye was crusted shut with yellow drainage. She some also states she has an IV doctor who had her on prednisolone and removed her from the medications. Denies vision loss. Review of Systems Review of Systems Constitutional: Denies fever or chills [] Eyes: Reports right eye drainage. Denies change in visual acuity, or eye pain [] Musculoskeletal: Denies back pain or joint pain [] Integument: Denies rash or skin lesions [] Neurologic: Denies headache, focal weakness or sensory changes [] All other systems were reviewed and found to be within normal limits, except as documented in this note. Allergies Allergies Allergies Coded Allergies Type Severity Reaction Last Updated Verified Sulfa (Sulfonamide Antibiotics) Allergy Intermediate 06/08/16 Yes Physical Exam Physical Exam Constitutional: Well developed, well nourished, no acute distress, non-toxic appearance. [] HENT: Normocephalic, atraumatic, bilateral external ears normal, oropharynx moist, no oral exudates, nose normal. [] Eyes: PERRLA, EOMI, right conjunctiva with slight erythema, there is moderate amount of yellow drainage around the right eyelids. Extremities: No tenderness, no cyanosis, no clubbing, ROM intact, no edema. [] Neurologic: Alert and oriented X 3, normal motor function, normal sensory fun ction, no focal deficits noted. [] Psychologic: Very talkative. EKG EKG [] Radiology/Procedures Radiology/Procedures [] Course & Med Decision Making Course & Med Decision Making Pertinent Labs and Imaging studies reviewed. (See chart for details) This is a 73-year-old female patient with bacteria conjunctivitis to the right eye. Discharged with tobramycin. Follow-up with the high doctor in a week. Dragon Disclaimer Dragon Disclaimer This electronic medical record was generated, in whole or in part, using a voice recognition dictation system. Departure Departure Impression: Primary Impression: Acute bacterial conjunctivitis of right eye Disposition: HOME, SELF-CARE Condition: STABLE Referrals: DEYSI OROPEZA (PCP) Follow-up with your eye doctor in one week Patient Instructions: Bacterial Conjunctivitis, [id number] Additional Instructions: You have infection to the right eye. Please use the prescribed eye drops as ordered. Follow-up with your eye doctor in a week. Maintain very good hand hygiene and keep your right eye clean Scripts Tobramycin (TOBRAMYCIN) 5 Ml Drops 1 DROP OD Q4HRS W/A, #5 ML Use for 5-7 days Prov: FABIOLA BALL APRN 06/09/19 FABIOLA BALL APRN Jun 09, 2019 14:44
== END 2019-06-09 14:40 | disposition home or self-care (01) ==
LOC: ER 14:12
DX: H10.31 Unspecified acute conjunctivitis, right eye (principal); B96.89 Other specified bacterial agents as the cause of diseases classified elsewhere; E03.9 Hypothyroidism, unspecified; F20.9 Schizophrenia, unspecified; Z88.2 Allergy status to sulfonamides
CPT/HCPCS: 99283

== ENCOUNTER 2019-07-27 07:24 | Inpatient (IN) | payer MEDICARE, BC ==
[~2019-07-27] VITALS: Ht 165.1 cm; Wt 51.7 kg
[~2019-07-27 07:24] MED LIST changes: +TOBR5DRO6 OD
[2019-07-27] MEDS ORDERED: IV NORMAL SALINE 1000ML BAG 1,000 ML IV SCH (07:32)
--- NOTE | 2019-07-27 07:36 | PHYS DOC ---
Past Medical History Past Medical History: Anxiety, Cancer, Depression, Hypothyroid, Schizophrenia, Other Additional Past Medical Histor: LYMPHOMA, "VOCAL CORD ISSUES",EXTRAPYRAMIDAL MOVEMENTS Past Surgical History: Appendectomy, Cholecystectomy, Tonsillectomy, Other Additional Past Surgical Histo: BACK SX, CATARACT, SKIN CA REMOVAL 09/2017 Alcohol Use: None Drug Use: None Adult General Chief Complaint Chief Complaint: ABDOMINAL PAIN HPI HPI Patient is a 73-year-old female who presents with complaint of lower abdominal pain extending into her groin as well as epigastric pain that started at about 10 PM last night. Patient rates pain at a 8 out of 10 and states pain is worsened with movement and palpation. She states that she has gone through a series of chiropractic adjustments over the last week for overexerting herself. She does not believe that this has anything to do with those treatments. She denies any urinary discomfort. She denies any fever. She states that nothing is improving her pain and states that she is not able to sleep due to the level of pain last night.[] Review of Systems Review of Systems Constitutional: Denies fever or chills [] Respiratory: Denies cough or shortness of breath [] Cardiovascular: No additional information not addressed in HPI [] GI: Complains of abdominal pain without vomiting or diarrhea [] Musculoskeletal: Complains of right lower back pain [] Integument: Denies rash or skin lesions [] Neurologic: Denies headache, focal weakness or sensory changes [] All other systems were reviewed and found to be within normal limits, except as documented in this note. Current Medications Current Medications Current Medications Medications (Trade) Dose Ordered Sig/Quoc Start Time Stop Time Status Last Admin Dose Admin Hydromorphone HCl (Dilaudid) 0.5 mg 1X ONCE 07/27/19 08:15 07/27/19 08:16 DC 07/27/19 08:05 0.5 MG Info (CONTRAST GIVEN -- Rx MONITORING) 1 each PRN DAILY PRN 07/27/19 09:45 07/29/19 09:44 Iohexol (Omnipaque 300 Mg/ml) 75 ml 1X ONCE 07/27/19 09:45 07/27/19 09:46 DC 07/27/19 09:45 75 ML Morphine Sulfate (Morphine Sulfate) 2 mg PRN Q15MIN PRN 07/27/19 07:45 07/28/19 07:44 07/27/19 07:42 2 MG Ondansetron HCl (Zofran) 4 mg 1X ONCE 07/27/19 07:45 07/27/19 07:46 DC 07/27/19 07:42 4 MG Sodium Chloride 1,000 ml @ 1,000 mls/hr Q1H 07/27/19 07:32 07/27/19 08:31 DC 07/27/19 07:41 1,000 MLS/HR Allergies Allergies Allergies Coded Allergies Type Severity Reaction Last Updated Verified Sulfa (Sulfonamide Antibiotics) Allergy Intermediate 06/08/16 Yes Physical Exam Physical Exam Constitutional: Well developed, well nourished, no acute distress, non-toxic appearance. [] HENT: Normocephalic, atraumatic, bilateral external ears normal, oropharynx moist, no oral exudates, nose normal. [] Eyes: PERRLA, EOMI, conjunctiva normal, no discharge. [] Neck: Normal range of motion, no tenderness, supple, no stridor. [] Cardiovascular:Heart rate regular rhythm, no murmur [] Lungs & Thorax: Bilateral breath sounds clear to auscultation [] Abdomen: Bowel sounds normal, soft, with moderate tenderness and the right lower abdomen and epigastric region. [] Skin: Warm, dry, no erythema, no rash. [] Extremities: No tenderness, no cyanosis, no clubbing, ROM intact. [] Neurologic: Alert and oriented X 3, no focal deficits noted. [] Current Patient Data Vital Signs Vital Signs Date Time Temp Pulse Resp B/P (MAP) Pulse Ox O2 Delivery O2 Flow Rate FiO2 07/27/19 09:58 78 20 176/84 (114) 95 Room Air 07/27/19 07:32 98.0 98.0 Lab Values Laboratory Tests Test 07/27/19 07:50 07/27/19 09:30 White Blood Count 5.3 x10^3/uL (4.0-11.0) Red Blood Count 4.72 x10^6/uL (3.50-5.40) Hemoglobin 15.0 g/dL (12.0-15.5) Hematocrit 43.3 % (36.0-47.0) Mean Corpuscular Volume 92 fL (79-100) Mean Corpuscular Hemoglobin 32 pg (25-35) Mean Corpuscular Hemoglobin Concent 35 g/dL (31-37) Red Cell Distribution Width 13.1 % (11.5-14.5) Platelet Count 182 x10^3/uL (140-400) Neutrophils (%) (Auto) 69 % (31-73) Lymphocytes (%) (Auto) 22 % (24-48) L Monocytes (%) (Auto) 7 % (0-9) Eosinophils (%) (Auto) 2 % (0-3) Basophils (%) (Auto) 0 % (0-3) Neutrophils # (Auto) 3.6 x10^3/uL (1.8-7.7) Lymphocytes # (Auto) 1.2 x10^3/uL (1.0-4.8) Monocytes # (Auto) 0.4 x10^3/uL (0.0-1.1) Eosinophils # (Auto) 0.1 x10^3/uL (0.0-0.7) Basophils # (Auto) 0.0 x10^3/uL (0.0-0.2) Sodium Level 139 mmol/L (136-145) Potassium Level 3.9 mmol/L (3.5-5.1) Chloride Level 101 mmol/L (98-107) Carbon Dioxide Level 31 mmol/L (21-32) Anion Gap 7 (6-14) Blood Urea Nitrogen 17 mg/dL (7-20) Creatinine 0.9 mg/dL (0.6-1.0) Estimated GFR (Cockcroft-Gault) 61.2 BUN/Creatinine Ratio 19 (6-20) Glucose Level 108 mg/dL (70-99) H Calcium Level 9.3 mg/dL (8.5-10.1) Total Bilirubin 0.6 mg/dL (0.2-1.0) Aspartate Amino Transferase (AST) 20 U/L (15-37) Alanine Aminotransferase (ALT) 22 U/L (14-59) Alkaline Phosphatase 92 U/L (46-116) Total Protein 7.4 g/dL (6.4-8.2) Albumin 4.3 g/dL (3.4-5.0) Albumin/Globulin Ratio 1.4 (1.0-1.7) Lipase 99 U/L (73-393) Urine Collection Type Unknown Urine Color Yellow Urine Clarity Clear Urine pH 7.5 Urine Specific [place] 1.010 Urine Protein Negative mg/dL (NEG-TRACE) Urine Glucose (UA) Negative mg/dL (NEG) Urine Ketones (Stick) Negative mg/dL (NEG) Urine Blood Negative (NEG) Urine Nitrite Negative (NEG) Urine Bilirubin Negative (NEG) Urine Urobilinogen Dipstick 0.2 mg/dL (0.2 mg/dL) Urine Leukocyte Esterase Negative (NEG) Urine RBC Occ /HPF (0-2) Urine WBC Rare /HPF (0-4) Urine Squamous Epithelial Cells Few /LPF Urine Bacteria Few /HPF (0-FEW) Urine Mucus Slight /LPF Laboratory Tests 07/27/19 07:50 Laboratory Tests 07/27/19 07:50 EKG EKG [] Radiology/Procedures Radiology/Procedures [] Impressions: PROCEDURE: CT ABD PELV W/ IV CONTRST ONLY EXAM: Abdomen and pelvis CT with intravenous contrast. HISTORY: Pain. TECHNIQUE: Computed tomographic images of the abdomen and pelvis were obtained following the administration of 75 cc Omnipaque 300 intravenous contrast. Multiplanar reformatting was performed. *One or more of the following individualized dose reduction techniques were utilized for this examination: 1. Automated exposure control. 2. Adjustment of the mA and/or kV according to patient size. 3. Use of iterative reconstruction technique. COMPARISON: 09/15/2015. FINDINGS: Evaluation of the lower thorax demonstrates small right lower lobe pulmonary nodules, the largest of which measures 9 mm. There is bilateral posterior dependent and basilar atelectasis. No pleural effusion is seen. There is stable suspected chronic scarring involving the anterior medial right middle lobe and lingula. There is a small pericardial effusion. There is biliary ductal dilatation extending to the ampulla. There is evidence of prior cholecystectomy. The pancreas and adrenal glands are unremarkable. The spleen is upper normal in size, measuring 13 cm in craniocaudal dimension. There is mild left pelvicaliectasis. There is no victoriano hydronephrosis. There are tiny bilateral renal cysts. Evaluation for a renal stone is limited in the presence of contrast. There is mild urinary bladder wall thickening likely due to relative under distention. There is a tiny focus within the urinary bladder likely due to recent catheterization. There is colonic diverticulosis. There is no convincing diverticulitis. The uterus and adnexal regions are unremarkable. There is no evidence of bowel obstruction. No pathologically enlarged lymph node is seen. There is aortobiiliac atherosclerosis. There are degenerative changes involving the spine. There is no suspicious osseous lesion. IMPRESSION: 1. Colonic diverticulosis, without convincing diverticulitis. 2. Biliary ductal dilatation. This may be due to reservoir effect status post cystectomy. ERCP or MRCP may be useful if there is concern for an occult obstructing etiology. 3. Mild left renal pelvicaliectasis, similar compared to the prior study. No convincing obstructing lesion is seen. There are tiny stable appearing renal cysts. 4. Small pericardial effusion, new compared to the prior study. 5. Small right lower lobe pulmonary nodules, the largest of which measures 9 mm. These are new compared to the prior study. The differential includes neoplastic as well as infectious and inflammatory etiologies. Follow-up is recommended according to Fleischner Society criteria. Fleischner Society recommendations (Radiology 2017): SOLID NODULES Solitary solid nodule <6 mm - low-risk patient: no routine follow-up required - high-risk patient: optional CT at 12 months (particularly with suspicious nodule morphology and/or upper lobe location) Solitary solid nodule 6-8 mm - low-risk patient: CT at 6-12 months, then consider CT at 18-24 months - high risk patient: CT at 6-12 months, then if persistent CT at 18-24 months Solitary solid nodule >8 mm - consider CT at 3 months, PET/CT, or tissue sampling Multiple solid nodules <6 mm - low-risk patient: no routine follow-up required - high-risk patient: optional CT at 12 months Multiple solid nodules >6 mm - low-risk patient: CT at 3-6 months, then consider CT at 18-24 months - high risk patient: CT at 3-6 months, then if persistent CT at 18-24 months SUBSOLID NODULES Solitary ground glass nodule <6 mm - no routine follow-up required Solitary ground glass nodule > or = 6 mm - CT at 6-12 months, then if persistent CT every 2 years until 5 years Solitary part solid nodule > or = 6mm - CT at 3-4 months, the if persistent and solid component remains <6 mm, annual CT until 5 years Multiple subsolid nodules <6 mm - CT at 3-6 months, then if stable consider CT at 2 and 4 years in high risk patients Multiple subsolid nodules > or = 6 mm - CT at 3-6 months, then subsequent management based on the most suspicious nodule(s) Electronically signed by: Maddie Donato MD (07/27/2019 10:02 AM) [facility] DICTATED and SIGNED BY: MADDIE DONATO MD DATE: 07/27/19 1002 Course & Med Decision Making Course & Med Decision Making Pertinent Labs and Imaging studies reviewed. (See chart for details) [] Dragon Disclaimer Dragon Disclaimer This electronic medical record was generated, in whole or in part, using a voice recognition dictation system. Departure Departure Impression: Primary Impression: Pericardial effusion Additional Impression: Abdominal pain Disposition: 09 ADMITTED INPATIENT Admitting Physician: ENRIQUE (Dr. Morales) Condition: IMPROVED Referrals: DEYSI OROPEZA (PCP) Problem Qualifiers Additional Impression: Abdominal pain Abdominal location: right lower quadrant Qualified Codes: R10.31 - Right lower quadrant pain NANCY BARRIENTOS Jr. DO Jul 27, 2019 07:36
[2019-07-27] MEDS ORDERED: ONDANSETRON PF 4 MG/2 ML VIAL. IV ONE (07:45)
[2019-07-27] MEDS ORDERED: MORPHINE SULFATE 2 MG/ML VIAL. IV/SQ PRN (07:45)
[2019-07-27 07:55] LABS: BASO % 0 % (0-3); EOS # 0.1 x10^3/uL (0.0-0.7); EOS % 2 % (0-3); HEMATOCRIT 43.3 % (36.0-47.0); LYMPH # 1.2 x10^3/uL (1.0-4.8); LYMPH % 22 % (24-48); MEAN CORPUSCULAR HEMOGLOBIN 32 pg (25-35); MEAN CORPUSCULAR HGB CONC 35 g/dL (31-37); MEAN CORPUSCULAR VOLUME 92 fL (79-100); MONO # 0.4 x10^3/uL (0.0-1.1); MONO % 7 % (0-9); NEUT # 3.6 x10^3/uL (1.8-7.7); NEUT % 69 % (31-73); PLATELET COUNT 182 x10^3/uL (140-400); RED BLOOD COUNT 4.72 x10^6/uL (3.50-5.40); RED CELL DISTRIBUTION WIDTH 13.1 % (11.5-14.5); WHITE BLOOD COUNT 5.3 x10^3/uL (4.0-11.0)
[2019-07-27 08:02] LABS: CALCIUM 9.3 mg/dL (8.5-10.1); CREATININE 0.9 mg/dL (0.6-1.0); GFR 61.2; POTASSIUM 3.9 mmol/L (3.5-5.1)
[2019-07-27 08:07] LABS: ALBUMIN 4.3 g/dL (3.4-5.0); ALBUMIN/GLOBULIN RATIO 1.4 (1.0-1.7); TOTAL BILIRUBIN 0.6 mg/dL (0.2-1.0); TOTAL PROTEIN 7.4 g/dL (6.4-8.2)
[2019-07-27] MEDS ORDERED: HYDROmorphone 2 MG/ML VIAL IV ONE (08:15)
[2019-07-27 09:44] LABS: BILIRUBIN,URINE NEGATIVE (NEG); CLARITY,URINE CLEAR; COLOR,URINE YELLOW; NITRITE,URINE NEGATIVE (NEG); PH,URINE 7.5; PROTEIN,URINE NEGATIVE (NEG-TRACE); UROBILINOGEN,URINE 0.2 mg/dL (0.2 mg/dL)
[2019-07-27] MEDS ORDERED: IOHEXOL 300 MG/ML 100ML VIAL. IV ONE (09:45)
[2019-07-27] MEDS ORDERED: CONTRAST GIVEN. MC PRN (09:45)
[2019-07-27 09:52] LABS: SQUAMOUS EPITHELIAL CELL,UR FEW /LPF
[2019-07-27 09:53] LABS: BACTERIA,URINE FEW /HPF (0-FEW); RBC,URINE OCC /HPF (0-2); WBC,URINE RARE /HPF (0-4)
--- NOTE | 2019-07-27 10:05 | RAD ---
EXAM: Abdomen and pelvis CT with intravenous contrast. HISTORY: Pain. TECHNIQUE: Computed tomographic images of the abdomen and pelvis were obtained following the administration of 75 cc Omnipaque 300 intravenous contrast. Multiplanar reformatting was performed. *One or more of the following individualized dose reduction techniques were utilized for this examination: 1. Automated exposure control. 2. Adjustment of the mA and/or kV according to patient size. 3. Use of iterative reconstruction technique. COMPARISON: 09/15/2015. FINDINGS: Evaluation of the lower thorax demonstrates small right lower lobe pulmonary nodules, the largest of which measures 9 mm. There is bilateral posterior dependent and basilar atelectasis. No pleural effusion is seen. There is stable suspected chronic scarring involving the anterior medial right middle lobe and lingula. There is a small pericardial effusion. There is biliary ductal dilatation extending to the ampulla. There is evidence of prior cholecystectomy. The pancreas and adrenal glands are unremarkable. The spleen is upper normal in size, measuring 13 cm in craniocaudal dimension. There is mild left pelvicaliectasis. There is no victoriano hydronephrosis. There are tiny bilateral renal cysts. Evaluation for a renal stone is limited in the presence of contrast. There is mild urinary bladder wall thickening likely due to relative under distention. There is a tiny focus within the urinary bladder likely due to recent catheterization. There is colonic diverticulosis. There is no convincing diverticulitis. The uterus and adnexal regions are unremarkable. There is no evidence of bowel obstruction. No pathologically enlarged lymph node is seen. There is aortobiiliac atherosclerosis. There are degenerative changes involving the spine. There is no suspicious osseous lesion. IMPRESSION: 1. Colonic diverticulosis, without convincing diverticulitis. 2. Biliary ductal dilatation. This may be due to reservoir effect status post cystectomy. ERCP or MRCP may be useful if there is concern for an occult obstructing etiology. 3. Mild left renal pelvicaliectasis, similar compared to the prior study. No convincing obstructing lesion is seen. There are tiny stable appearing renal cysts. 4. Small pericardial effusion, new compared to the prior study. 5. Small right lower lobe pulmonary nodules, the largest of which measures 9 mm. These are new compared to the prior study. The differential includes neoplastic as well as infectious and inflammatory etiologies. Follow-up is recommended according to Fleischner Society criteria. Fleischner Society recommendations (Radiology 2017): SOLID NODULES Solitary solid nodule <6 mm - low-risk patient: no routine follow-up required - high-risk patient: optional CT at 12 months (particularly with suspicious nodule morphology and/or upper lobe location) Solitary solid nodule 6-8 mm - low-risk patient: CT at 6-12 months, then consider CT at 18-24 months - high risk patient: CT at 6-12 months, then if persistent CT at 18-24 months Solitary solid nodule >8 mm - consider CT at 3 months, PET/CT, or tissue sampling Multiple solid nodules <6 mm - low-risk patient: no routine follow-up required - high-risk patient: optional CT at 12 months Multiple solid nodules >6 mm - low-risk patient: CT at 3-6 months, then consider CT at 18-24 months - high risk patient: CT at 3-6 months, then if persistent CT at 18-24 months SUBSOLID NODULES Solitary ground glass nodule <6 mm - no routine follow-up required Solitary ground glass nodule > or = 6 mm - CT at 6-12 months, then if persistent CT every 2 years until 5 years Solitary part solid nodule > or = 6mm - CT at 3-4 months, the if persistent and solid component remains <6 mm, annual CT until 5 years Multiple subsolid nodules <6 mm - CT at 3-6 months, then if stable consider CT at 2 and 4 years in high risk patients Multiple subsolid nodules > or = 6 mm - CT at 3-6 months, then subsequent management based on the most suspicious nodule(s) Electronically signed by: Maddie Núñez MD (07/27/2019 10:02 AM) [facility]
[2019-07-27] MEDS ORDERED: ACETAMINOPHEN 325 MG TABLET. PO PRN (11:00)
[2019-07-27] MEDS: ONDANSETRON PF 4 MG/2 ML VIAL. IV PRN ×2 (11:27→20:29)
[2019-07-27] MEDS: fentaNYL PF VIAL 100 MCG/2 ML VIAL IV PRN (11:28)
--- NOTE | 2019-07-27 12:25 | PDOC2 ---
CONSULT Date of Consult Date of Consult DATE: 07/27/19 TIME: 12:14 Reason for Consult Reason for Consult: Abdominal pain and back pain History of Present Illness Reason for Visit: This is a 73-year-old female who presents with onset yesterday of diffuse but nonspecific abdominal pain and back pain. She's not had a chronic history of stomach complaints recently but does note that she's had some back difficulties and has undergone a number of chiropractic adjustments this week. He does not take NSAIDs but does use a cold pack. She presented because of these pains started yesterday. The pain is in her right lower abdomen and her epigastric region but was not associated with nausea or vomiting. She denies dyspepsia or heartburn, denies melena or hematochezia. She describes a colonoscopy several years ago at where a polyp was removed. She describes several previous abdominal surgeries including open appendectomy with some soiling (1981) and lap cholecystectomy with lysis of adhesions in 2012. She describes non-Hodgkin's lymphoma diagnosed in 2013 and treated with chemotherapy. EGD in [address] Borjas was negative. Denies any chronic GI problems such as ulcer disease, abdominal pain, nausea, heartburn, dyspepsia, change in bowel pattern or previous GI bleeding. Past Medical History Heme/Onc: Cancer (non-Hodgkin's lymphoma 2017) Hepatobiliary: Cholelithiasis Musculoskeletal: low back pain Past Surgical History Past Surgical History: Appendectomy, Cholecystectomy, Other (resection of basal cell cancer of the left arm) Current Problem List Problem List Problems Medical Problems: (1) Abdominal pain Status: Acute (2) Pericardial effusion Status: Acute Current Medications Current Medications Current Medications Morphine Sulfate (Morphine Sulfate) 2 mg PRN Q15MIN PRN IV/SQ PAIN GREATER THAN 3/10 Last administered on 07/27/19at 07:42; Start 07/27/19 at 07:45; Stop 07/28/19 at 07:44 Sodium Chloride 1,000 ml @ 1,000 mls/hr Q1H IV Last administered on 07/27/19at 07:41; Start 07/27/19 at 07:32; Stop 07/27/19 at 08:31; Status DC Ondansetron HCl (Zofran) 4 mg 1X ONCE IV Last administered on 07/27/19at 07:42; Start 07/27/19 at 07:45; Stop 07/27/19 at 07:46; Status DC Hydromorphone HCl (Dilaudid) 0.5 mg 1X ONCE IV Last administered on 07/27/19at 08:05; Start 07/27/19 at 08:15; Stop 07/27/19 at 08:16; Status DC Iohexol (Omnipaque 300 Mg/ml) 75 ml 1X ONCE IV Last administered on 07/27/19at 09:45; Start 07/27/19 at 09:45; Stop 07/27/19 at 09:46; Status DC Info (CONTRAST GIVEN -- Rx MONITORING) 1 each PRN DAILY PRN MC SEE COMMENTS; Start 07/27/19 at 09:45; Stop 07/29/19 at 09:44 Ondansetron HCl (Zofran) 4 mg PRN Q8HRS PRN IV NAUSEA/VOMITING Last administered on 07/27/19at 11:27; Start 07/27/19 at 11:00; Stop 07/28/19 at 10:59 Fentanyl Citrate (Fentanyl 2ml Vial) 50 mcg PRN Q2HRS PRN IV PAIN Last administered on 07/27/19at 11:28; Start 07/27/19 at 11:00 Acetaminophen (Tylenol) 650 mg PRN Q4HRS PRN PO FEVER; Start 07/27/19 at 11:00; Stop 07/28/19 at 10:59 Active Scripts Active Tobramycin 5 Ml Drops 1 Drop OD Q4HRS W/A Use for 5-7 days Prometh-Codein 6.25-10 mg/5 ml (Promethazine HCl/Codeine) 5 Ml Syrup 5 Ml PO Q6- 8HRS PRN Ventolin Hfa Inhaler (Albuterol Sulfate) 18 Gm Hfa.aer.ad 2 Puff INH Q4HRS Doxycycline Hyclate 100 Mg Tablet.dr 1 Tab PO BID Triamcinolone Acetonide 0.1% Oint (Triamcinolone Acetonide) 15 Gm Oint...g. 1 Ta TP BID Tylenol (Acetaminophen) 325 Mg Tablet 1-2 Tab PO QID Augmentin 875-125 Tablet (Amoxicillin/Potassium Clav) 1 Each Tablet 1 Tab PO BID Zofran Odt (Ondansetron) 4 Mg Tab.rapdis 1 Tab SL Q8HRS PRN Tessalon Perle (Benzonatate) 100 Mg Capsule 200 Mg PO TID PRN [place] 5-325 Tablet (Acetaminophen/Hydrocodone Bitart) 1 Each Tablet 1 Tab PO PRN Q6HRS PRN Zofran Odt (Ondansetron) 4 Mg Tab.rapdis 1 Tab SL Q8HRS PRN Miralax (Polyethylene Glycol 3350) 119 Gm Powder 17 Gm PO DAILY Tussin Cough (Dextromethorphan Hbr) 15 Mg Capsule 15 Mg PO PRN Q4-6HRS PRN Allergies Allergies: Coded Allergies: Sulfa (Sulfonamide Antibiotics) (Verified Allergy, Intermediate, 06/08/16) ROS PSYCHOLOGICAL ROS: YES: Anxiety, Concentration difficultie, Obsessive thoughts Physical Exam General: Alert, Oriented X3, Other (anxious with flight of thoughts) HEENT: Atraumatic, PERRLA Lungs: Clear to auscultation Heart: Regular rate, Normal S1, Normal S2, No murmurs Abdomen: Normal bowel sounds, Soft, No tenderness, No hepatosplenomegaly, No masses Extremities: No clubbing, No cyanosis Vitals VITALS Vital Signs Date Time Temp Pulse Resp B/P (MAP) Pulse Ox O2 Delivery O2 Flow Rate FiO2 07/27/19 11:28 20 07/27/19 11:20 85 165/75 (105) 96 07/27/19 10:50 Room Air 07/27/19 07:32 98.0 98.0 Labs Labs Laboratory Tests Test 07/27/19 07:50 07/27/19 09:30 White Blood Count 5.3 x10^3/uL (4.0-11.0) Red Blood Count 4.72 x10^6/uL (3.50-5.40) Hemoglobin 15.0 g/dL (12.0-15.5) Hematocrit 43.3 % (36.0-47.0) Mean Corpuscular Volume 92 fL (79-100) Mean Corpuscular Hemoglobin 32 pg (25-35) Mean Corpuscular Hemoglobin Concent 35 g/dL (31-37) Red Cell Distribution Width 13.1 % (11.5-14.5) Platelet Count 182 x10^3/uL (140-400) Neutrophils (%) (Auto) 69 % (31-73) Lymphocytes (%) (Auto) 22 % (24-48) Monocytes (%) (Auto) 7 % (0-9) Eosinophils (%) (Auto) 2 % (0-3) Basophils (%) (Auto) 0 % (0-3) Neutrophils # (Auto) 3.6 x10^3/uL (1.8-7.7) Lymphocytes # (Auto) 1.2 x10^3/uL (1.0-4.8) Monocytes # (Auto) 0.4 x10^3/uL (0.0-1.1) Eosinophils # (Auto) 0.1 x10^3/uL (0.0-0.7) Basophils # (Auto) 0.0 x10^3/uL (0.0-0.2) Sodium Level 139 mmol/L (136-145) Potassium Level 3.9 mmol/L (3.5-5.1) Chloride Level 101 mmol/L (98-107) Carbon Dioxide Level 31 mmol/L (21-32) Anion Gap 7 (6-14) Blood Urea Nitrogen 17 mg/dL (7-20) Creatinine 0.9 mg/dL (0.6-1.0) Estimated GFR (Cockcroft-Gault) 61.2 BUN/Creatinine Ratio 19 (6-20) Glucose Level 108 mg/dL (70-99) Calcium Level 9.3 mg/dL (8.5-10.1) Total Bilirubin 0.6 mg/dL (0.2-1.0) Aspartate Amino Transf (AST/SGOT) 20 U/L (15-37) Alanine Aminotransferase (ALT/SGPT) 22 U/L (14-59) Alkaline Phosphatase 92 U/L (46-116) Troponin I Quantitative < 0.017 ng/mL (0.000-0.055) Total Protein 7.4 g/dL (6.4-8.2) Albumin 4.3 g/dL (3.4-5.0) Albumin/Globulin Ratio 1.4 (1.0-1.7) Lipase 99 U/L (73-393) Urine Collection Type Unknown Urine Color Yellow Urine Clarity Clear Urine pH 7.5 Urine Specific [place] 1.010 Urine Protein Negative mg/dL (NEG-TRACE) Urine Glucose (UA) Negative mg/dL (NEG) Urine Ketones (Stick) Negative mg/dL (NEG) Urine Blood Negative (NEG) Urine Nitrite Negative (NEG) Urine Bilirubin Negative (NEG) Urine Urobilinogen Dipstick 0.2 mg/dL (0.2 mg/dL) Urine Leukocyte Esterase Negative (NEG) Urine RBC Occ /HPF (0-2) Urine WBC Rare /HPF (0-4) Urine Squamous Epithelial Cells Few /LPF Urine Bacteria Few /HPF (0-FEW) Urine Mucus Slight /LPF Laboratory Tests Test 07/27/19 07:50 07/27/19 09:30 White Blood Count 5.3 x10^3/uL (4.0-11.0) Red Blood Count 4.72 x10^6/uL (3.50-5.40) Hemoglobin 15.0 g/dL (12.0-15.5) Hematocrit 43.3 % (36.0-47.0) Mean Corpuscular Volume 92 fL (79-100) Mean Corpuscular Hemoglobin 32 pg (25-35) Mean Corpuscular Hemoglobin Concent 35 g/dL (31-37) Red Cell Distribution Width 13.1 % (11.5-14.5) Platelet Count 182 x10^3/uL (140-400) Neutrophils (%) (Auto) 69 % (31-73) Lymphocytes (%) (Auto) 22 % (24-48) Monocytes (%) (Auto) 7 % (0-9) Eosinophils (%) (Auto) 2 % (0-3) Basophils (%) (Auto) 0 % (0-3) Neutrophils # (Auto) 3.6 x10^3/uL (1.8-7.7) Lymphocytes # (Auto) 1.2 x10^3/uL (1.0-4.8) Monocytes # (Auto) 0.4 x10^3/uL (0.0-1.1) Eosinophils # (Auto) 0.1 x10^3/uL (0.0-0.7) Basophils # (Auto) 0.0 x10^3/uL (0.0-0.2) Sodium Level 139 mmol/L (136-145) Potassium Level 3.9 mmol/L (3.5-5.1) Chloride Level 101 mmol/L (98-107) Carbon Dioxide Level 31 mmol/L (21-32) Anion Gap 7 (6-14) Blood Urea Nitrogen 17 mg/dL (7-20) Creatinine 0.9 mg/dL (0.6-1.0) Estimated GFR (Cockcroft-Gault) 61.2 BUN/Creatinine Ratio 19 (6-20) Glucose Level 108 mg/dL (70-99) Calcium Level 9.3 mg/dL (8.5-10.1) Total Bilirubin 0.6 mg/dL (0.2-1.0) Aspartate Amino Transf (AST/SGOT) 20 U/L (15-37) Alanine Aminotransferase (ALT/SGPT) 22 U/L (14-59) Alkaline Phosphatase 92 U/L (46-116) Troponin I Quantitative < 0.017 ng/mL (0.000-0.055) Total Protein 7.4 g/dL (6.4-8.2) Albumin 4.3 g/dL (3.4-5.0) Albumin/Globulin Ratio 1.4 (1.0-1.7) Lipase 99 U/L (73-393) Urine Collection Type Unknown Urine Color Yellow Urine Clarity Clear Urine pH 7.5 Urine Specific [place] 1.010 Urine Protein Negative mg/dL (NEG-TRACE) Urine Glucose (UA) Negative mg/dL (NEG) Urine Ketones (Stick) Negative mg/dL (NEG) Urine Blood Negative (NEG) Urine Nitrite Negative (NEG) Urine Bilirubin Negative (NEG) Urine Urobilinogen Dipstick 0.2 mg/dL (0.2 mg/dL) Urine Leukocyte Esterase Negative (NEG) Urine RBC Occ /HPF (0-2) Urine WBC Rare /HPF (0-4) Urine Squamous Epithelial Cells Few /LPF Urine Bacteria Few /HPF (0-FEW) Urine Mucus Slight /LPF Images Images CT scan of the abdomen and pelvis revealed some small pulmonary nodules, diverticulosis without diverticulitis, dilated biliary system postcholecystectomy without obvious mass, no inflammatory changes seen. Assessment/Plan Assessment/Plan Nonspecific abdominal pain starting yesterday. It seems associated with some back discomfort associated with prior chiropractic adjustments. No chronic history of GI complaints. CT scan fails to reveal any acute inflammatory changes. She does have diverticulosis but does not appear inflamed and her pain is not in the left lower quadrant. There was some epigastric discomfort by history but her examination today is relatively benign. Her laboratory values are also benign as well. Her demeanor is that of some psychological issues including hyperactive speech pattern some flight of ideas. THis could be contributing to her presentation as well. Plan: Trial of Pepcid , When necessary antacids, when necessary Tylenol. Monitor for change in symptoms or complaints. Would not recommend any additional GI testing at this time. Review with continuation of diet and would suggest early discharge JESSICA SAUCEDA MD Jul 27, 2019 12:25
[2019-07-27] MEDS ORDERED: CALCIUM CARBONATE 500 MG TAB.CHEW PO PRN (12:30)
[2019-07-27 13:02] VITALS: BP 158/80
--- NOTE | 2019-07-27 13:15 | HP ---
ADMIT DATE: 07/27/2019 CHIEF COMPLAINT: Abdominal pain. HISTORY OF PRESENT ILLNESS: The patient is a pleasant 73-year-old female, who is somewhat of a poor historian. She presented with abdominal pain. It was in the lower quadrants as well, started at 10:00 last night, rated 8/10. She has a history of previous surgeries with adhesions. While in the ER, we did some imaging, which is showing a pericardial effusion. Her abdominal pain is getting a little better. I discussed the case with the ER physician. We are going to admit the patient in consult with Cardiology. PAST MEDICAL HISTORY: Anxiety, cancer, chemotherapy, depression, hypothyroidism, schizophrenia, lymphoma, cholecystectomy, tonsillectomy, back surgery, skin cancer. ALLERGIES: SULFA. FAMILY HISTORY: Coronary artery disease. SOCIAL HISTORY: She does not drink, smoke or take drugs. MEDICATIONS: Reviewed, please refer to the MRAD. REVIEW OF SYSTEMS: GENERAL: No history of weight change, weakness or fevers. SKIN: No bruising, hair changes or rashes. EYES: No blurred, double or loss of vision. NOSE AND THROAT: No history of nosebleeds, hoarseness or sore throat. HEART: No history of palpitations, chest pain or shortness of breath on exertion. LUNGS: Denies cough, hemoptysis, wheezing or shortness of breath. GASTROINTESTINAL: She complains of abdominal pain but that is improved. GENITOURINARY: No history of frequency, urgency, hesitancy or nocturia. NEUROLOGIC: Denies history of numbness, tingling, tremor or weakness. PSYCHIATRIC: No history of panic, anxiety or depression. ENDOCRINE: No history of heat or cold intolerance, polyuria or polydipsia. EXTREMITIES: Denies muscle weakness, joint pain, pain on walking or stiffness. PHYSICAL EXAMINATION: VITALS: Within normal limits and are stable. GENERAL: No apparent distress. Alert and oriented. HEENT: She has got some slight discharge from the right eye. NECK: Supple, no JVD, no thyromegaly was noted. LUNGS: Clear to auscultation in all lung [place] without rhonchi or wheezing. HEART: RRR, S1, S2 present. Peripheral pulses intact, no obvious murmurs were noted. ABDOMEN: She has small incisions that have healed well. The abdomen is nontender but bowel sounds no organomegaly, normal bowel sounds. EXTREMITIES: Without any cyanosis, clubbing, or edema. Pedal pulses intact, Homans sign is negative. NEUROLOGIC: Normal speech, normal tone. A & O x3, moves all extremities, no obvious focal deficits. PSYCHIATRIC: She is a little anxious, a little confused at times. SKIN: No ulcerations or rashes, good skin turgor, no jaundice. VASCULAR: Good capillary refill, neurovascular bundle appears to be intact. HEMATOLOGY: Normal. LABORATORY DATA: Electrolytes are normal. Urinalysis normal. CT of the abdomen and pelvis shows diverticulosis and biliary duct dilatation, mild left renal pelviectasis, small pericardial effusion, right lower lobe pulmonary nodules. ASSESSMENT AND PLAN: Abdominal pain with incidental finding of a small pericardial effusion and pulmonary nodules, diverticulosis and biliary duct dilatation. The patient will be admitted. We will consult Pulmonary and GI and Cardiology. Home meds, DVT prophylaxis. Full code. ARMAAN LEUNG DO DR: JESSICA/audi JOB#: [id number] / [id number]
[2019-07-27] MEDS: FAMOTIDINE 20 MG TABLET. PO SCH ×2 (14:44→20:29)
[2019-07-27 15:00] VITALS: BP 145/47
[2019-07-27 19:10] VITALS: BP 165/84
[2019-07-27 23:10] VITALS: BP 173/86
[2019-07-28] VITALS (7 sets, daily range): BP systolic 126–166; BP diastolic 54–89
[2019-07-28 06:36] LABS: BASO % 0 % (0-3); EOS # 0.1 x10^3/uL (0.0-0.7); EOS % 2 % (0-3); HEMOGLOBIN 14.3 g/dL (12.0-15.5); LYMPH % 18 % (24-48); MEAN CORPUSCULAR HEMOGLOBIN 32 pg (25-35); MEAN CORPUSCULAR HGB CONC 35 g/dL (31-37); MEAN CORPUSCULAR VOLUME 92 fL (79-100); MONO # 0.3 x10^3/uL (0.0-1.1); MONO % 6 % (0-9); NEUT # 4.1 x10^3/uL (1.8-7.7); NEUT % 74 % (31-73); PLATELET COUNT 183 x10^3/uL (140-400); RED BLOOD COUNT 4.46 x10^6/uL (3.50-5.40); RED CELL DISTRIBUTION WIDTH 13.3 % (11.5-14.5); WHITE BLOOD COUNT 5.5 x10^3/uL (4.0-11.0)
[2019-07-28 06:53] LABS: CALCIUM 9.2 mg/dL (8.5-10.1); CREATININE 0.9 mg/dL (0.6-1.0); GFR 61.2
--- NOTE | 2019-07-28 08:51 | CONS ---
DATE OF CONSULTATION: 07/28/2019 I was asked to see this patient for pulmonary nodules. HISTORY OF PRESENT ILLNESS: She is a lifelong nonsmoker. She was treated by Dr. Mendez many years ago for asthma, but she denies shortness of breath, cough, sputum production, runny nose. She was admitted with nausea. CT of abdomen was done, which did show small right lower lobe pulmonary nodules, largest was largest is 9 mm. She has history of non-Hodgkin lymphoma, was diagnosed in 2014 and did get the chemotherapy at [facility]. She has been followed at . PAST MEDICAL HISTORY: Anxiety, non-Hodgkin lymphoma, hypothyroidism, schizophrenia, cholecystectomy, tonsillectomy, and back surgery. ALLERGIES: SULFA. MEDICATIONS: Currently, she is on Pepcid, Tums, and Tylenol. SOCIAL HISTORY: Lifelong nonsmoker. FAMILY HISTORY: Her maternal grandfather had COPD. REVIEW OF SYSTEMS: As mentioned as above. Her weight has been stable. Other systems are otherwise negative. PHYSICAL EXAMINATION: GENERAL: This is a chronically ill-appearing lady. VITAL SIGNS: Her O2 saturation is 98%, respiratory rate 16, heart rate 82, blood pressure 126/66, and temperature 98.2. HEENT: Normocephalic, atraumatic. Pupils equal, round, reactive to light. Throat is clear. Nose is clear. NECK: There is no JVD, lymphadenopathy or thyromegaly. CARDIOVASCULAR: Regular rate and rhythm. PMI is nondisplaced. CHEST: Inspection is normal. LUNGS: Clear to auscultation. Percussions within normal limit. ABDOMEN: Soft. Bowel sounds are good. There is no mass. EXTREMITIES: There is no edema. LYMPHATICS: There is no lymphadenopathy. NEUROLOGIC: Alert and oriented. SKIN: Chronic changes. LABORATORY DATA: I reviewed the following lab data: CT of abdomen and pelvis did show small right lower lobe pulmonary nodule, largest measured 9 mm. These are new compared to the CT was done in 2015. Colonic diverticulosis, biliary duct dilatation, mild left renal pelvicaliectasis, small stable renal cyst, small pericardial effusion. Sodium 141, potassium 4, chloride 103, CO2 of 31, glucose 106, BUN 13, creatinine 0.9. Troponin less than 0.17. Lipase 99. WBC 5.5, hemoglobin 14.3, platelets 183. IMPRESSION: 1. Pulmonary nodules. Differential diagnosis including inflammatory versus infectious versus granulomatous versus malignancy versus others. 2. History of non-Hodgkin lymphoma. 3. Nausea? etiology. 4. Hypothyroidism. 5. Schizophrenia. PLAN AND RECOMMENDATIONS: 1. Titrate FiO2 to keep O2 saturation 92%. 2. I will do a CT of the chest to look at the whole lung parenchyma to see if there are any other abnormalities in lungs. Further recommendations after CT of the chest was reviewed. 3. GI is consulted. 4. Agree with Pepcid. 5. The findings and recommendations were discussed with the patient. She understood and agreed to proceed with the plan. I have answered all of her questions. Thank you very much for allowing me to participate in the care of this very nice lady. JESSICA STARKS M.D. : V[place]ius JOB#: [id number] / [id number]
[2019-07-28] MEDS: FAMOTIDINE 20 MG TABLET. PO SCH ×2 (09:48→20:59)
[2019-07-28] MEDS: ONDANSETRON PF 4 MG/2 ML VIAL. IV PRN (09:58)
--- NOTE | 2019-07-28 10:32 | PDOC ---
PROGRESS NOTES History of Present Illness History of Present Illness ASSESSMENT AND PLAN: Abdominal pain pericardial effusion pulmonary nodules, Small right lower lobe pulmonary nodules, the largest of which measures 9 mm. These are new compared to the prior study. The differential includes neoplastic as well as infectious and inflammatory etiologies. diverticulosis and biliary duct dilatation. admitted. consult Pulmonary GI consulted Cardiology.consulted Home meds, DVT prophylaxis. Full code. po pesid bid 28 min pt exam, chart review, > 50% of time spent on exam, chart review, pt care coordination Vitals Vitals Vital Signs Date Time Temp Pulse Resp B/P (MAP) Pulse Ox O2 Delivery O2 Flow Rate FiO2 07/28/19 07:00 99.0 83 18 163/88 (113) 97 99.0 07/28/19 03:10 Room Air Physical Exam General: Alert, Oriented X3, Other (anxious with flight of thoughts) Heart: Regular rate, Normal S1, Normal S2, No murmurs Lungs: Clear Abdomen: Normal bowel sounds, Soft, No tenderness, No hepatosplenomegaly, No masses Extremities: No clubbing, No cyanosis Labs LABS TECHNIQUE: Computed tomographic images of the abdomen and pelvis were obtained following the administration of 75 cc Omnipaque 300 intravenous contrast. Multiplanar reformatting was performed. *One or more of the following individualized dose reduction techniques were utilized for this examination: 1. Automated exposure control. 2. Adjustment of the mA and/or kV according to patient size. 3. Use of iterative reconstruction technique. COMPARISON: 09/15/2015. FINDINGS: Evaluation of the lower thorax demonstrates small right lower lobe pulmonary nodules, the largest of which measures 9 mm. There is bilateral posterior dependent and basilar atelectasis. No pleural effusion is seen. There is stable suspected chronic scarring involving the anterior medial right middle lobe and lingula. There is a small pericardial effusion. There is biliary ductal dilatation extending to the ampulla. There is evidence of prior cholecystectomy. The pancreas and adrenal glands are unremarkable. The spleen is upper normal in size, measuring 13 cm in craniocaudal dimension. There is mild left pelvicaliectasis. There is no victoriano hydronephrosis. There are tiny bilateral renal cysts. Evaluation for a renal stone is limited in the presence of contrast. There is mild urinary bladder wall thickening likely due to relative under distention. There is a tiny focus within the urinary bladder likely due to recent catheterization. There is colonic diverticulosis. There is no convincing diverticulitis. The uterus and adnexal regions are unremarkable. There is no evidence of bowel obstruction. No pathologically enlarged lymph node is seen. There is aortobiiliac atherosclerosis. There are degenerative changes involving the spine. There is no suspicious osseous lesion. IMPRESSION: 1. Colonic diverticulosis, without convincing diverticulitis. 2. Biliary ductal dilatation. This may be due to reservoir effect status post cystectomy. ERCP or MRCP may be useful if there is concern for an occult obstructing etiology. 3. Mild left renal pelvicaliectasis, similar compared to the prior study. No convincing obstructing lesion is seen. There are tiny stable appearing renal cysts. 4. Small pericardial effusion, new compared to the prior study. 5. Small right lower lobe pulmonary nodules, the largest of which measures 9 mm. These are new compared to the prior study. The differential includes neoplastic as well as infectious and inflammatory etiologies. Follow-up is recommended according to Fleischner Society criteria. Fleischner Society recommendations (Radiology 2017): SOLID NODULES Solitary solid nodule <6 mm - low-risk patient: no routine follow-up required - high-risk patient: optional CT at 12 months (particularly with suspicious nodule morphology and/or upper lobe location) Solitary solid nodule 6-8 mm - low-risk patient: CT at 6-12 months, then consider CT at 18-24 months - high risk patient: CT at 6-12 months, then if persistent CT at 18-24 months Solitary solid nodule >8 mm - consider CT at 3 months, PET/CT, or tissue sampling Laboratory Tests Test 07/28/19 05:44 White Blood Count 5.5 x10^3/uL (4.0-11.0) Red Blood Count 4.46 x10^6/uL (3.50-5.40) Hemoglobin 14.3 g/dL (12.0-15.5) Hematocrit 41.0 % (36.0-47.0) Mean Corpuscular Volume 92 fL (79-100) Mean Corpuscular Hemoglobin 32 pg (25-35) Mean Corpuscular Hemoglobin Concent 35 g/dL (31-37) Red Cell Distribution Width 13.3 % (11.5-14.5) Platelet Count 183 x10^3/uL (140-400) Neutrophils (%) (Auto) 74 % (31-73) Lymphocytes (%) (Auto) 18 % (24-48) Monocytes (%) (Auto) 6 % (0-9) Eosinophils (%) (Auto) 2 % (0-3) Basophils (%) (Auto) 0 % (0-3) Neutrophils # (Auto) 4.1 x10^3/uL (1.8-7.7) Lymphocytes # (Auto) 1.0 x10^3/uL (1.0-4.8) Monocytes # (Auto) 0.3 x10^3/uL (0.0-1.1) Eosinophils # (Auto) 0.1 x10^3/uL (0.0-0.7) Basophils # (Auto) 0.0 x10^3/uL (0.0-0.2) Sodium Level 141 mmol/L (136-145) Potassium Level 4.0 mmol/L (3.5-5.1) Chloride Level 103 mmol/L (98-107) Carbon Dioxide Level 31 mmol/L (21-32) Anion Gap 7 (6-14) Blood Urea Nitrogen 13 mg/dL (7-20) Creatinine 0.9 mg/dL (0.6-1.0) Estimated GFR (Cockcroft-Gault) 61.2 Glucose Level 106 mg/dL (70-99) Calcium Level 9.2 mg/dL (8.5-10.1) Assessment and Plan Assessmemt and Plan Problems Medical Problems: (1) Abdominal pain Status: Acute (2) Pericardial effusion Status: Acute history of non-Hodgkin lymphoma, was diagnosed in 2014 chemotherapy at [facility]. followed at . PAST MEDICAL HISTORY: Anxiety, non-Hodgkin lymphoma, hypothyroidism, schizophrenia, cholecystectomy, tonsillectomy, and back surgery. ALLERGIES: SULFA. Comment Review of Relevant I have reviewed the following items malika (where applicable) has been applied. Labs Laboratory Tests Test 07/27/19 07:50 07/27/19 09:30 07/28/19 05:44 White Blood Count 5.3 x10^3/uL (4.0-11.0) 5.5 x10^3/uL (4.0-11.0) Red Blood Count 4.72 x10^6/uL (3.50-5.40) 4.46 x10^6/uL (3.50-5.40) Hemoglobin 15.0 g/dL (12.0-15.5) 14.3 g/dL (12.0-15.5) Hematocrit 43.3 % (36.0-47.0) 41.0 % (36.0-47.0) Mean Corpuscular Volume 92 fL (79-100) 92 fL (79-100) Mean Corpuscular Hemoglobin 32 pg (25-35) 32 pg (25-35) Mean Corpuscular Hemoglobin Concent 35 g/dL (31-37) 35 g/dL (31-37) Red Cell Distribution Width 13.1 % (11.5-14.5) 13.3 % (11.5-14.5) Platelet Count 182 x10^3/uL (140-400) 183 x10^3/uL (140-400) Neutrophils (%) (Auto) 69 % (31-73) 74 % (31-73) Lymphocytes (%) (Auto) 22 % (24-48) 18 % (24-48) Monocytes (%) (Auto) 7 % (0-9) 6 % (0-9) Eosinophils (%) (Auto) 2 % (0-3) 2 % (0-3) Basophils (%) (Auto) 0 % (0-3) 0 % (0-3) Neutrophils # (Auto) 3.6 x10^3/uL (1.8-7.7) 4.1 x10^3/uL (1.8-7.7) Lymphocytes # (Auto) 1.2 x10^3/uL (1.0-4.8) 1.0 x10^3/uL (1.0-4.8) Monocytes # (Auto) 0.4 x10^3/uL (0.0-1.1) 0.3 x10^3/uL (0.0-1.1) Eosinophils # (Auto) 0.1 x10^3/uL (0.0-0.7) 0.1 x10^3/uL (0.0-0.7) Basophils # (Auto) 0.0 x10^3/uL (0.0-0.2) 0.0 x10^3/uL (0.0-0.2) Sodium Level 139 mmol/L (136-145) 141 mmol/L (136-145) Potassium Level 3.9 mmol/L (3.5-5.1) 4.0 mmol/L (3.5-5.1) Chloride Level 101 mmol/L (98-107) 103 mmol/L (98-107) Carbon Dioxide Level 31 mmol/L (21-32) 31 mmol/L (21-32) Anion Gap 7 (6-14) 7 (6-14) Blood Urea Nitrogen 17 mg/dL (7-20) 13 mg/dL (7-20) Creatinine 0.9 mg/dL (0.6-1.0) 0.9 mg/dL (0.6-1.0) Estimated GFR (Cockcroft-Gault) 61.2 61.2 BUN/Creatinine Ratio 19 (6-20) Glucose Level 108 mg/dL (70-99) 106 mg/dL (70-99) Calcium Level 9.3 mg/dL (8.5-10.1) 9.2 mg/dL (8.5-10.1) Total Bilirubin 0.6 mg/dL (0.2-1.0) Aspartate Amino Transf (AST/SGOT) 20 U/L (15-37) Alanine Aminotransferase (ALT/SGPT) 22 U/L (14-59) Alkaline Phosphatase 92 U/L (46-116) Troponin I Quantitative < 0.017 ng/mL (0.000-0.055) Total Protein 7.4 g/dL (6.4-8.2) Albumin 4.3 g/dL (3.4-5.0) Albumin/Globulin Ratio 1.4 (1.0-1.7) Lipase 99 U/L (73-393) Urine Collection Type Unknown Urine Color Yellow Urine Clarity Clear Urine pH 7.5 Urine Specific [place] 1.010 Urine Protein Negative mg/dL (NEG-TRACE) Urine Glucose (UA) Negative mg/dL (NEG) Urine Ketones (Stick) Negative mg/dL (NEG) Urine Blood Negative (NEG) Urine Nitrite Negative (NEG) Urine Bilirubin Negative (NEG) Urine Urobilinogen Dipstick 0.2 mg/dL (0.2 mg/dL) Urine Leukocyte Esterase Negative (NEG) Urine RBC Occ /HPF (0-2) Urine WBC Rare /HPF (0-4) Urine Squamous Epithelial Cells Few /LPF Urine Bacteria Few /HPF (0-FEW) Urine Mucus Slight /LPF Laboratory Tests Test 07/28/19 05:44 White Blood Count 5.5 x10^3/uL (4.0-11.0) Red Blood Count 4.46 x10^6/uL (3.50-5.40) Hemoglobin 14.3 g/dL (12.0-15.5) Hematocrit 41.0 % (36.0-47.0) Mean Corpuscular Volume 92 fL (79-100) Mean Corpuscular Hemoglobin 32 pg (25-35) Mean Corpuscular Hemoglobin Concent 35 g/dL (31-37) Red Cell Distribution Width 13.3 % (11.5-14.5) Platelet Count 183 x10^3/uL (140-400) Neutrophils (%) (Auto) 74 % (31-73) Lymphocytes (%) (Auto) 18 % (24-48) Monocytes (%) (Auto) 6 % (0-9) Eosinophils (%) (Auto) 2 % (0-3) Basophils (%) (Auto) 0 % (0-3) Neutrophils # (Auto) 4.1 x10^3/uL (1.8-7.7) Lymphocytes # (Auto) 1.0 x10^3/uL (1.0-4.8) Monocytes # (Auto) 0.3 x10^3/uL (0.0-1.1) Eosinophils # (Auto) 0.1 x10^3/uL (0.0-0.7) Basophils # (Auto) 0.0 x10^3/uL (0.0-0.2) Sodium Level 141 mmol/L (136-145) Potassium Level 4.0 mmol/L (3.5-5.1) Chloride Level 103 mmol/L (98-107) Carbon Dioxide Level 31 mmol/L (21-32) Anion Gap 7 (6-14) Blood Urea Nitrogen 13 mg/dL (7-20) Creatinine 0.9 mg/dL (0.6-1.0) Estimated GFR (Cockcroft-Gault) 61.2 Glucose Level 106 mg/dL (70-99) Calcium Level 9.2 mg/dL (8.5-10.1) Medications Current Medications Morphine Sulfate (Morphine Sulfate) 2 mg PRN Q15MIN PRN IV/SQ PAIN GREATER THAN 3/10 Last administered on 07/27/19at 07:42; Start 07/27/19 at 07:45; Stop 07/28/19 at 07:44; Status DC Sodium Chloride 1,000 ml @ 1,000 mls/hr Q1H IV Last administered on 07/27/19at 07:41; Start 07/27/19 at 07:32; Stop 07/27/19 at 08:31; Status DC Ondansetron HCl (Zofran) 4 mg 1X ONCE IV Last administered on 07/27/19at 07:42; Start 07/27/19 at 07:45; Stop 07/27/19 at 07:46; Status DC Hydromorphone HCl (Dilaudid) 0.5 mg 1X ONCE IV Last administered on 07/27/19at 08:05; Start 07/27/19 at 08:15; Stop 07/27/19 at 08:16; Status DC Iohexol (Omnipaque 300 Mg/ml) 75 ml 1X ONCE IV Last administered on 07/27/19at 09:45; Start 07/27/19 at 09:45; Stop 07/27/19 at 09:46; Status DC Info (CONTRAST GIVEN -- Rx MONITORING) 1 each PRN DAILY PRN MC SEE COMMENTS; Start 07/27/19 at 09:45; Stop 07/29/19 at 09:44 Ondansetron HCl (Zofran) 4 mg PRN Q8HRS PRN IV NAUSEA/VOMITING Last administered on 07/28/19at 09:58; Start 07/27/19 at 11:00; Stop 07/28/19 at 10:59 Fentanyl Citrate (Fentanyl 2ml Vial) 50 mcg PRN Q2HRS PRN IV PAIN Last administered on 07/27/19at 11:28; Start 07/27/19 at 11:00 Acetaminophen (Tylenol) 650 mg PRN Q4HRS PRN PO FEVER; Start 07/27/19 at 11:00; Stop 07/28/19 at 10:59 Calcium Carbonate/ Glycine (Tums) 500 mg PRN AFTMEALHC PRN PO INDIGESTION; Start 07/27/19 at 12:30 Famotidine (Pepcid) 20 mg BID PO Last administered on 07/28/19at 09:48; Start 07/27/19 at 13:00 Active Scripts Active Vitals/I & O Vital Sign - Last 24 Hours 07/27/19 07/27/19 07/27/19 07/27/19 10:50 11:20 11:28 12:05 Pulse 87 85 Resp 18 20 16 B/P (MAP) 164/89 (114) 165/75 (105) Pulse Ox 97 96 O2 Delivery Room Air Room Air 07/27/19 07/27/19 07/27/19 07/27/19 13:02 15:00 19:10 23:10 Temp 97.6 98.2 98.4 97.6 97.6 98.2 98.4 97.6 Pulse 87 91 86 84 Resp 16 17 17 B/P (MAP) 158/80 (106) 145/47 (79) 165/84 (111) 173/86 (115) Pulse Ox 96 93 98 97 O2 Delivery Room Air Room Air Room Air 07/28/19 07/28/19 07/28/19 01:28 03:10 07:00 Temp 98.2 99.0 98.2 99.0 Pulse 79 82 83 Resp 14 16 18 B/P (MAP) 126/66 (86) 166/89 (114) 163/88 (113) Pulse Ox 98 97 O2 Delivery Room Air Room Air Intake and Output 07/27/19 07/27/19 07/28/19 15:00 23:00 07:00 Intake Total 200 ml Balance 200 ml CHECO WATKINS MD Jul 28, 2019 10:32
--- NOTE | 2019-07-28 10:59 | PDOC ---
GI PROGRESS NOTES Date Date/Time DATE: 07/28/19 TIME: 10:56 Subjective Subjective Feeling okay. Described some nausea but really was talking more about her back pain. She is eating a regular cardiac diet without difficulty. Her descriptive terms and response to questions about her history are very flighty and is difficult to get her to focus on the issues at hand. Objective Vitals Vital Signs Date Time Temp Pulse Resp B/P (MAP) Pulse Ox O2 Delivery O2 Flow Rate FiO2 07/28/19 07:00 99.0 83 18 163/88 (113) 97 99.0 07/28/19 03:10 98.2 82 16 166/89 (114) 98 Room Air 98.2 07/28/19 01:28 79 14 126/66 (86) Room Air 07/27/19 23:10 97.6 84 17 173/86 (115) 97 Room Air 97.6 07/27/19 19:10 98.4 86 17 165/84 (111) 98 Room Air 98.4 07/27/19 15:00 98.2 91 16 145/47 (79) 93 98.2 07/27/19 13:02 97.6 87 158/80 (106) 96 Room Air 97.6 07/27/19 12:05 16 Room Air 07/27/19 11:28 20 07/27/19 11:20 85 18 165/75 (105) 96 Labs Labs Laboratory Tests Test 07/28/19 05:44 White Blood Count 5.5 x10^3/uL (4.0-11.0) Red Blood Count 4.46 x10^6/uL (3.50-5.40) Hemoglobin 14.3 g/dL (12.0-15.5) Hematocrit 41.0 % (36.0-47.0) Mean Corpuscular Volume 92 fL (79-100) Mean Corpuscular Hemoglobin 32 pg (25-35) Mean Corpuscular Hemoglobin Concent 35 g/dL (31-37) Red Cell Distribution Width 13.3 % (11.5-14.5) Platelet Count 183 x10^3/uL (140-400) Neutrophils (%) (Auto) 74 % (31-73) Lymphocytes (%) (Auto) 18 % (24-48) Monocytes (%) (Auto) 6 % (0-9) Eosinophils (%) (Auto) 2 % (0-3) Basophils (%) (Auto) 0 % (0-3) Neutrophils # (Auto) 4.1 x10^3/uL (1.8-7.7) Lymphocytes # (Auto) 1.0 x10^3/uL (1.0-4.8) Monocytes # (Auto) 0.3 x10^3/uL (0.0-1.1) Eosinophils # (Auto) 0.1 x10^3/uL (0.0-0.7) Basophils # (Auto) 0.0 x10^3/uL (0.0-0.2) Sodium Level 141 mmol/L (136-145) Potassium Level 4.0 mmol/L (3.5-5.1) Chloride Level 103 mmol/L (98-107) Carbon Dioxide Level 31 mmol/L (21-32) Anion Gap 7 (6-14) Blood Urea Nitrogen 13 mg/dL (7-20) Creatinine 0.9 mg/dL (0.6-1.0) Estimated GFR (Cockcroft-Gault) 61.2 Glucose Level 106 mg/dL (70-99) Calcium Level 9.2 mg/dL (8.5-10.1) Physical Exam Physical Exam Chest clear Heart regular rate and rhythm Abdomen soft nontender, normal bowel sounds. No masses. Assessment Assessment Vague abdominal pain history. Clinically improved. CT scan was unrevealing for an potential source for her pain. The dilated biliary tract is most likely postcholecystectomy at her diverticulosis is not associated with inflammation. She describes "nausea" but in reality she is describing more her pain and lifting issues that it is true nausea. She is tolerating her diet well. I have started Pepcid empirically and I think that makes some sense for her. Unless her symptoms dramatically change I do not recommend any GI testing at this time but we can follow up in the outpatient setting JESSICA SAUCEDA MD Jul 28, 2019 10:59
--- NOTE | 2019-07-28 11:38 | EKG ---
[facility] [address] [place] [address] Test Date: 2019-07-27 Test Time: 10:33:20 Pat Name: CHICHI ZHU Department: Room: Gender: F Marionette Performer: : 1945 Requested By: NANCY BARRIENTOS Order Number: [id number] Reading MD: Measurements Intervals [place] Rate: 78 P: 66 [place]: 198 QRS: 25 QRSD: 64 T: 22 QT: 384 QTc: 441 Interpretive Statements SINUS RHYTHM LOW LIMB LEAD VOLTAGE NON SPECIFIC ST-T ABNORMALITY (ELEVATION) NON SPECIFIC ST DEPRESSION BORDERLINE ECG No previous ECG available for comparison
--- NOTE | 2019-07-28 15:38 | PDOC2 ---
CONSULT Date of Consult Date of Consult DATE: 07/28/19 TIME: 15:33 Reason for Consult Reason for Consult: Pericardial effusion seen on CT scan Referring Physician Referring Physician: Dr. Morales Identification/Chief Complaint Chief Complaint Abdominal pain Source Source: Chart review, Patient History of Present Illness Reason for Visit: The patient is a 73-year-old female who was admitted yesterday through the emergency room for episodes of abdominal discomfort. The patient has been evaluated and GI consultation has been obtained. She is feeling significantly better today. CT scan of the chest and abdomen showed colonic 5 diverticulosis and delivery duct dilatation. It also showed a small pericardial effusion. This morning the patient reports feeling better. She denies chest pain or shortness of breath. She denies any history of coronary artery disease or congestive heart failure. Past Medical History Cardiovascular: HTN Heme/Onc: Cancer (non-Hodgkin's lymphoma 2018) Hepatobiliary: Cholelithiasis Musculoskeletal: low back pain Past Surgical History Past Surgical History: Appendectomy, Cholecystectomy, Tonsillectomy, Other (resection of basal cell cancer of the left arm) Family History Family History: Hypertension Social History No ALCOHOL: none Current Problem List Problem List Problems Medical Problems: (1) Abdominal pain Status: Acute (2) Pericardial effusion Status: Acute Current Medications Current Medications Current Medications Morphine Sulfate (Morphine Sulfate) 2 mg PRN Q15MIN PRN IV/SQ PAIN GREATER THAN 3/10 Last administered on 07/27/19at 07:42; Start 07/27/19 at 07:45; Stop 07/28/19 at 07:44; Status DC Sodium Chloride 1,000 ml @ 1,000 mls/hr Q1H IV Last administered on 07/27/19at 07:41; Start 07/27/19 at 07:32; Stop 07/27/19 at 08:31; Status DC Ondansetron HCl (Zofran) 4 mg 1X ONCE IV Last administered on 07/27/19at 07:42; Start 07/27/19 at 07:45; Stop 07/27/19 at 07:46; Status DC Hydromorphone HCl (Dilaudid) 0.5 mg 1X ONCE IV Last administered on 07/27/19at 08:05; Start 07/27/19 at 08:15; Stop 07/27/19 at 08:16; Status DC Iohexol (Omnipaque 300 Mg/ml) 75 ml 1X ONCE IV Last administered on 07/27/19at 09:45; Start 07/27/19 at 09:45; Stop 07/27/19 at 09:46; Status DC Info (CONTRAST GIVEN -- Rx MONITORING) 1 each PRN DAILY PRN MC SEE COMMENTS; Start 07/27/19 at 09:45; Stop 07/29/19 at 09:44 Ondansetron HCl (Zofran) 4 mg PRN Q8HRS PRN IV NAUSEA/VOMITING Last administered on 07/28/19at 09:58; Start 07/27/19 at 11:00; Stop 07/28/19 at 10:59; Status DC Fentanyl Citrate (Fentanyl 2ml Vial) 50 mcg PRN Q2HRS PRN IV PAIN Last administered on 07/27/19at 11:28; Start 07/27/19 at 11:00 Acetaminophen (Tylenol) 650 mg PRN Q4HRS PRN PO FEVER; Start 07/27/19 at 11:00; Stop 07/28/19 at 10:59; Status DC Calcium Carbonate/ Glycine (Tums) 500 mg PRN AFTMEALHC PRN PO INDIGESTION; Start 07/27/19 at 12:30 Famotidine (Pepcid) 20 mg BID PO Last administered on 07/28/19at 09:48; Start 07/27/19 at 13:00 Active Scripts Active Allergies Allergies: Coded Allergies: Sulfa (Sulfonamide Antibiotics) (Verified Allergy, Intermediate, 06/08/16) ROS General: YES: Fatigue Gastrointestinal: Yes Abdominal Pain Physical Exam General: No acute distress HEENT: Atraumatic Lungs: Clear to auscultation Heart: Regular rate Abdomen: Normal bowel sounds Vitals VITALS Vital Signs Date Time Temp Pulse Resp B/P (MAP) Pulse Ox O2 Delivery O2 Flow Rate FiO2 07/28/19 15:00 98.4 84 16 156/74 (101) 97 Room Air 98.4 Labs Labs Laboratory Tests Test 07/27/19 07:50 07/27/19 09:30 07/28/19 05:44 White Blood Count 5.3 x10^3/uL (4.0-11.0) 5.5 x10^3/uL (4.0-11.0) Red Blood Count 4.72 x10^6/uL (3.50-5.40) 4.46 x10^6/uL (3.50-5.40) Hemoglobin 15.0 g/dL (12.0-15.5) 14.3 g/dL (12.0-15.5) Hematocrit 43.3 % (36.0-47.0) 41.0 % (36.0-47.0) Mean Corpuscular Volume 92 fL (79-100) 92 fL (79-100) Mean Corpuscular Hemoglobin 32 pg (25-35) 32 pg (25-35) Mean Corpuscular Hemoglobin Concent 35 g/dL (31-37) 35 g/dL (31-37) Red Cell Distribution Width 13.1 % (11.5-14.5) 13.3 % (11.5-14.5) Platelet Count 182 x10^3/uL (140-400) 183 x10^3/uL (140-400) Neutrophils (%) (Auto) 69 % (31-73) 74 % (31-73) Lymphocytes (%) (Auto) 22 % (24-48) 18 % (24-48) Monocytes (%) (Auto) 7 % (0-9) 6 % (0-9) Eosinophils (%) (Auto) 2 % (0-3) 2 % (0-3) Basophils (%) (Auto) 0 % (0-3) 0 % (0-3) Neutrophils # (Auto) 3.6 x10^3/uL (1.8-7.7) 4.1 x10^3/uL (1.8-7.7) Lymphocytes # (Auto) 1.2 x10^3/uL (1.0-4.8) 1.0 x10^3/uL (1.0-4.8) Monocytes # (Auto) 0.4 x10^3/uL (0.0-1.1) 0.3 x10^3/uL (0.0-1.1) Eosinophils # (Auto) 0.1 x10^3/uL (0.0-0.7) 0.1 x10^3/uL (0.0-0.7) Basophils # (Auto) 0.0 x10^3/uL (0.0-0.2) 0.0 x10^3/uL (0.0-0.2) Sodium Level 139 mmol/L (136-145) 141 mmol/L (136-145) Potassium Level 3.9 mmol/L (3.5-5.1) 4.0 mmol/L (3.5-5.1) Chloride Level 101 mmol/L (98-107) 103 mmol/L (98-107) Carbon Dioxide Level 31 mmol/L (21-32) 31 mmol/L (21-32) Anion Gap 7 (6-14) 7 (6-14) Blood Urea Nitrogen 17 mg/dL (7-20) 13 mg/dL (7-20) Creatinine 0.9 mg/dL (0.6-1.0) 0.9 mg/dL (0.6-1.0) Estimated GFR (Cockcroft-Gault) 61.2 61.2 BUN/Creatinine Ratio 19 (6-20) Glucose Level 108 mg/dL (70-99) 106 mg/dL (70-99) Calcium Level 9.3 mg/dL (8.5-10.1) 9.2 mg/dL (8.5-10.1) Total Bilirubin 0.6 mg/dL (0.2-1.0) Aspartate Amino Transf (AST/SGOT) 20 U/L (15-37) Alanine Aminotransferase (ALT/SGPT) 22 U/L (14-59) Alkaline Phosphatase 92 U/L (46-116) Troponin I Quantitative < 0.017 ng/mL (0.000-0.055) Total Protein 7.4 g/dL (6.4-8.2) Albumin 4.3 g/dL (3.4-5.0) Albumin/Globulin Ratio 1.4 (1.0-1.7) Lipase 99 U/L (73-393) Urine Collection Type Unknown Urine Color Yellow Urine Clarity Clear Urine pH 7.5 Urine Specific [place] 1.010 Urine Protein Negative mg/dL (NEG-TRACE) Urine Glucose (UA) Negative mg/dL (NEG) Urine Ketones (Stick) Negative mg/dL (NEG) Urine Blood Negative (NEG) Urine Nitrite Negative (NEG) Urine Bilirubin Negative (NEG) Urine Urobilinogen Dipstick 0.2 mg/dL (0.2 mg/dL) Urine Leukocyte Esterase Negative (NEG) Urine RBC Occ /HPF (0-2) Urine WBC Rare /HPF (0-4) Urine Squamous Epithelial Cells Few /LPF Urine Bacteria Few /HPF (0-FEW) Urine Mucus Slight /LPF Laboratory Tests Test 07/28/19 05:44 White Blood Count 5.5 x10^3/uL (4.0-11.0) Red Blood Count 4.46 x10^6/uL (3.50-5.40) Hemoglobin 14.3 g/dL (12.0-15.5) Hematocrit 41.0 % (36.0-47.0) Mean Corpuscular Volume 92 fL (79-100) Mean Corpuscular Hemoglobin 32 pg (25-35) Mean Corpuscular Hemoglobin Concent 35 g/dL (31-37) Red Cell Distribution Width 13.3 % (11.5-14.5) Platelet Count 183 x10^3/uL (140-400) Neutrophils (%) (Auto) 74 % (31-73) Lymphocytes (%) (Auto) 18 % (24-48) Monocytes (%) (Auto) 6 % (0-9) Eosinophils (%) (Auto) 2 % (0-3) Basophils (%) (Auto) 0 % (0-3) Neutrophils # (Auto) 4.1 x10^3/uL (1.8-7.7) Lymphocytes # (Auto) 1.0 x10^3/uL (1.0-4.8) Monocytes # (Auto) 0.3 x10^3/uL (0.0-1.1) Eosinophils # (Auto) 0.1 x10^3/uL (0.0-0.7) Basophils # (Auto) 0.0 x10^3/uL (0.0-0.2) Sodium Level 141 mmol/L (136-145) Potassium Level 4.0 mmol/L (3.5-5.1) Chloride Level 103 mmol/L (98-107) Carbon Dioxide Level 31 mmol/L (21-32) Anion Gap 7 (6-14) Blood Urea Nitrogen 13 mg/dL (7-20) Creatinine 0.9 mg/dL (0.6-1.0) Estimated GFR (Cockcroft-Gault) 61.2 Glucose Level 106 mg/dL (70-99) Calcium Level 9.2 mg/dL (8.5-10.1) Images Images As above Assessment/Plan Assessment/Plan 1. Abdominal pain. Pain has significantly improved today. CT scan results as above. Being evaluated by the GI service. 2. Small pericardial effusion seen on CT scanning. Patient denies chest pain or shortness of breath. We'll check an echocardiogram to evaluate the effusion. Thank you for allowing us to participate in the care of your patient. JOHNY CHE MD Jul 28, 2019 15:38
--- NOTE | 2019-07-28 19:15 | RAD ---
CT of the chest without contrast: Clinical History: Pulmonary nodules. Axial helical images of the chest were obtained without contrast. There are numerous subcentimeter pulmonary nodules scattered throughout the lungs bilaterally. There are numerous moderately enlarged partially calcified mediastinal lymph nodes there are a few mildly enlarged hilar lymph nodes. Impression: 1. Moderate lymphadenopathy. There is calcification within the lymph nodes. Correlate for possible sarcoidosis. 2. Numerous pulmonary nodules in the lungs could also be secondary to sarcoidosis provided patient does not have history of prior cancer. These are too small for percutaneous biopsy. End impression PQRS Compliance Statement: One or more of the following individualized dose reduction techniques were utilized for this examination: 1. Automated exposure control 2. Adjustment of the mA and/or kV according to patient size 3. Use of iterative reconstruction technique Electronically signed by: Phillip Padgett III, MD (07/28/2019 7:12 PM) [id number]
[2019-07-29] MEDS: fentaNYL PF VIAL 100 MCG/2 ML VIAL IV PRN ×2 (03:00→12:38)
[2019-07-29 03:10] VITALS: BP 149/81
[2019-07-29 07:53] VITALS: BP 164/67
--- NOTE | 2019-07-29 08:26 | PDOC ---
PROGRESS NOTES History of Present Illness History of Present Illness ASSESSMENT AND PLAN: Abdominal pain pericardial effusion pulmonary nodules, Small right lower lobe pulmonary nodules, the largest of which measures 9 mm. These are new compared to the prior study. The differential includes neoplastic as well as infectious and inflammatory etiologies. diverticulosis and biliary duct dilatation. admitted. consult Pulmonary GI consulted Cardiology.consulted Home meds, DVT prophylaxis. Full code. po pesid bid echo 27 min pt exam, chart review, > 50% of time spent on exam, chart review, pt care coordination Vitals Vitals Vital Signs Date Time Temp Pulse Resp B/P (MAP) Pulse Ox O2 Delivery O2 Flow Rate FiO2 07/29/19 07:53 98.8 77 18 164/67 (99) 98 Room Air 98.8 Physical Exam General: Alert, Oriented X3, Cooperative, No acute distress Heart: Regular rate Lungs: Clear Abdomen: Normal bowel sounds Extremities: No clubbing, No cyanosis Assessment and Plan Assessmemt and Plan Problems Medical Problems: (1) Abdominal pain Status: Acute (2) Pericardial effusion Status: Acute Comment Review of Relevant I have reviewed the following items malika (where applicable) has been applied. Labs Laboratory Tests Test 07/27/19 09:30 07/28/19 05:44 Urine Collection Type Unknown Urine Color Yellow Urine Clarity Clear Urine pH 7.5 Urine Specific [place] 1.010 Urine Protein Negative mg/dL (NEG-TRACE) Urine Glucose (UA) Negative mg/dL (NEG) Urine Ketones (Stick) Negative mg/dL (NEG) Urine Blood Negative (NEG) Urine Nitrite Negative (NEG) Urine Bilirubin Negative (NEG) Urine Urobilinogen Dipstick 0.2 mg/dL (0.2 mg/dL) Urine Leukocyte Esterase Negative (NEG) Urine RBC Occ /HPF (0-2) Urine WBC Rare /HPF (0-4) Urine Squamous Epithelial Cells Few /LPF Urine Bacteria Few /HPF (0-FEW) Urine Mucus Slight /LPF White Blood Count 5.5 x10^3/uL (4.0-11.0) Red Blood Count 4.46 x10^6/uL (3.50-5.40) Hemoglobin 14.3 g/dL (12.0-15.5) Hematocrit 41.0 % (36.0-47.0) Mean Corpuscular Volume 92 fL (79-100) Mean Corpuscular Hemoglobin 32 pg (25-35) Mean Corpuscular Hemoglobin Concent 35 g/dL (31-37) Red Cell Distribution Width 13.3 % (11.5-14.5) Platelet Count 183 x10^3/uL (140-400) Neutrophils (%) (Auto) 74 % (31-73) Lymphocytes (%) (Auto) 18 % (24-48) Monocytes (%) (Auto) 6 % (0-9) Eosinophils (%) (Auto) 2 % (0-3) Basophils (%) (Auto) 0 % (0-3) Neutrophils # (Auto) 4.1 x10^3/uL (1.8-7.7) Lymphocytes # (Auto) 1.0 x10^3/uL (1.0-4.8) Monocytes # (Auto) 0.3 x10^3/uL (0.0-1.1) Eosinophils # (Auto) 0.1 x10^3/uL (0.0-0.7) Basophils # (Auto) 0.0 x10^3/uL (0.0-0.2) Sodium Level 141 mmol/L (136-145) Potassium Level 4.0 mmol/L (3.5-5.1) Chloride Level 103 mmol/L (98-107) Carbon Dioxide Level 31 mmol/L (21-32) Anion Gap 7 (6-14) Blood Urea Nitrogen 13 mg/dL (7-20) Creatinine 0.9 mg/dL (0.6-1.0) Estimated GFR (Cockcroft-Gault) 61.2 Glucose Level 106 mg/dL (70-99) Calcium Level 9.2 mg/dL (8.5-10.1) Medications Current Medications Morphine Sulfate (Morphine Sulfate) 2 mg PRN Q15MIN PRN IV/SQ PAIN GREATER THAN 3/10 Last administered on 07/27/19at 07:42; Start 07/27/19 at 07:45; Stop 07/28/19 at 07:44; Status DC Sodium Chloride 1,000 ml @ 1,000 mls/hr Q1H IV Last administered on 07/27/19at 07:41; Start 07/27/19 at 07:32; Stop 07/27/19 at 08:31; Status DC Ondansetron HCl (Zofran) 4 mg 1X ONCE IV Last administered on 07/27/19at 07:42; Start 07/27/19 at 07:45; Stop 07/27/19 at 07:46; Status DC Hydromorphone HCl (Dilaudid) 0.5 mg 1X ONCE IV Last administered on 07/27/19at 08:05; Start 07/27/19 at 08:15; Stop 07/27/19 at 08:16; Status DC Iohexol (Omnipaque 300 Mg/ml) 75 ml 1X ONCE IV Last administered on 07/27/19at 09:45; Start 07/27/19 at 09:45; Stop 07/27/19 at 09:46; Status DC Info (CONTRAST GIVEN -- Rx MONITORING) 1 each PRN DAILY PRN MC SEE COMMENTS; Start 07/27/19 at 09:45; Stop 07/29/19 at 09:44 Ondansetron HCl (Zofran) 4 mg PRN Q8HRS PRN IV NAUSEA/VOMITING Last adm inistered on 07/28/19at 09:58; Start 07/27/19 at 11:00; Stop 07/28/19 at 10:59; Status DC Fentanyl Citrate (Fentanyl 2ml Vial) 50 mcg PRN Q2HRS PRN IV PAIN Last administered on 07/29/19at 03:00; Start 07/27/19 at 11:00 Acetaminophen (Tylenol) 650 mg PRN Q4HRS PRN PO FEVER; Start 07/27/19 at 11:00; Stop 07/28/19 at 10:59; Status DC Calcium Carbonate/ Glycine (Tums) 500 mg PRN AFTMEALHC PRN PO INDIGESTION; Start 07/27/19 at 12:30 Famotidine (Pepcid) 20 mg BID PO Last administered on 07/28/19at 20:59; Start 07/27/19 at 13:00 Active Scripts Active Vitals/I & O Vital Sign - Last 24 Hours 07/28/19 07/28/19 07/28/19 07/28/19 11:00 15:00 19:05 23:05 Temp 98.6 98.4 98.0 97.6 98.6 98.4 98.0 97.6 Pulse 86 84 82 87 Resp 16 16 17 28 B/P (MAP) 153/79 (103) 156/74 (101) 163/88 (113) 134/54 (80) Pulse Ox 97 97 96 99 O2 Delivery Room Air Room Air Room Air Room Air 07/29/19 07/29/19 07/29/19 07/29/19 03:00 03:10 03:30 07:53 Temp 98.9 98.8 98.9 98.8 Pulse 74 77 Resp 16 17 16 18 B/P (MAP) 149/81 (103) 164/67 (99) Pulse Ox 99 97 99 98 O2 Delivery Room Air Room Air Room Air Room Air Intake and Output 07/28/19 07/28/19 07/29/19 15:00 23:00 07:00 Intake Total 300 ml Output Total 0 ml 0 ml Balance 0 ml 0 ml 300 ml CHECO WATKINS MD Jul 29, 2019 08:26
--- NOTE | 2019-07-29 09:40 | PDOC ---
Subjective: Subjective: Tells me how her younger brother didn't take bags of trash to the curb and she had to drag them and maybe that's why she has pain. Objective: Objective: Reviewed w/ nurse - c/o nausea but eats well. Doesn't want pain meds. Vital Signs: Vital Signs Date Time Temp Pulse Resp B/P (MAP) Pulse Ox O2 Delivery O2 Flow Rate FiO2 07/29/19 07:53 98.8 77 18 164/67 (99) 98 Room Air 98.8 Imaging: Echocardiogram 07/[address] A/P 07/27 IMPRESSION: 1. Colonic diverticulosis, without convincing diverticulitis. 2. Biliary ductal dilatation. This may be due to reservoir effect status post cystectomy. ERCP or MRCP may be useful if there is concern for an occult obstructing etiology. 3. Mild left renal pelvicaliectasis, similar compared to the prior study. No convincing obstructing lesion is seen. There are tiny stable appearing renal cysts. 4. Small pericardial effusion, new compared to the prior study. 5. Small right lower lobe pulmonary nodules, the largest of which measures 9 mm. These are new compared to the prior study. The differential includes neoplastic as well as infectious and inflammatory etiologies. Follow-up is recommended according to Fleischner Society criteria. PE: GEN: NAD, sitting on edge of bed, hasn't tried breakfast yet LUNGS: CTAB HEART: RRR ABD: S/ND/NT NEURO/PSYCH: A & O �3 A/P: ?abd pain ?nausea ?back pain - on empiric Pepcid -- Labs and imaging unrevealing. Tolerating diet. DC per primary, can follow-up w/ GI as outpt. PHILLIP WINSTON Jul 29, 2019 09:40
[2019-07-29] MEDS: FAMOTIDINE 20 MG TABLET. PO SCH ×2 (09:43→20:52)
[2019-07-29 11:35] VITALS: BP 161/73
--- NOTE | 2019-07-29 12:00 | NUR ---
SW following pt for dc planning. Chart reviewed and pt lives at home with family. No SW needs noted at this time. SWer will be available as needed.
--- NOTE | 2019-07-29 13:18 | PDOC ---
PULMONARY PROGRESS NOTES Subjective no soa Vitals Vital Signs Date Time Temp Pulse Resp B/P (MAP) Pulse Ox O2 Delivery O2 Flow Rate FiO2 07/29/19 12:38 16 Room Air 07/29/19 11:35 98.2 78 161/73 (102) 97 98.2 General: Alert, No acute distress Lungs: Clear Cardiovascular: S1 Abdomen: Soft Neuro Exam: Alert Extremities: No Edema Skin: Warm Labs Laboratory Tests Test 07/28/19 05:44 White Blood Count 5.5 x10^3/uL (4.0-11.0) Red Blood Count 4.46 x10^6/uL (3.50-5.40) Hemoglobin 14.3 g/dL (12.0-15.5) Hematocrit 41.0 % (36.0-47.0) Mean Corpuscular Volume 92 fL (79-100) Mean Corpuscular Hemoglobin 32 pg (25-35) Mean Corpuscular Hemoglobin Concent 35 g/dL (31-37) Red Cell Distribution Width 13.3 % (11.5-14.5) Platelet Count 183 x10^3/uL (140-400) Neutrophils (%) (Auto) 74 % (31-73) Lymphocytes (%) (Auto) 18 % (24-48) Monocytes (%) (Auto) 6 % (0-9) Eosinophils (%) (Auto) 2 % (0-3) Basophils (%) (Auto) 0 % (0-3) Neutrophils # (Auto) 4.1 x10^3/uL (1.8-7.7) Lymphocytes # (Auto) 1.0 x10^3/uL (1.0-4.8) Monocytes # (Auto) 0.3 x10^3/uL (0.0-1.1) Eosinophils # (Auto) 0.1 x10^3/uL (0.0-0.7) Basophils # (Auto) 0.0 x10^3/uL (0.0-0.2) Sodium Level 141 mmol/L (136-145) Potassium Level 4.0 mmol/L (3.5-5.1) Chloride Level 103 mmol/L (98-107) Carbon Dioxide Level 31 mmol/L (21-32) Anion Gap 7 (6-14) Blood Urea Nitrogen 13 mg/dL (7-20) Creatinine 0.9 mg/dL (0.6-1.0) Estimated GFR (Cockcroft-Gault) 61.2 Glucose Level 106 mg/dL (70-99) Calcium Level 9.2 mg/dL (8.5-10.1) Medications Active Scripts Medications Dose Route/Sig Max Daily Dose Days Date Category Impression . 1. Tiny bilateral pulmonary nodules. Differential diagnosis including inflammatory versus granulomatous lung disease/ ? sarcoidosis ( brother had sarcoidosis). ? related to NHL 2. History of non-Hodgkin lymphoma. 3. Nausea? etiology. 4. Hypothyroidism. 5. Schizophrenia. Plan . 1. Titrate FiO2 to keep O2 saturation 92%. 2. d/w patient in detail about ct chest findings. she follows at cancer center at . future ct chest reg lung nodule can be followed there. will provide a copy of report to pt 3. GI rec 4. Agree with Pepcid. 5. The findings and recommendations were discussed with the patient. She understood and agreed to proceed with the plan. I have answered all of her questions. CELESTE TAYLOR MD Jul 29, 2019 13:18
--- NOTE | 2019-07-29 14:08 | PDOC3 ---
Discharge Summary Date of Admission: Jul 27, 2019 Date of Discharge: Jul 29, 2019 Follow-Up: 3-5 days Admitting Diagnosis comment: discharge dx Abdominal pain // gastritis pericardial effusion pulmonary nodules, Small right lower lobe pulmonary nodules, the largest of which measures 9 mm. These are new compared to the prior study. The differential includes neoplastic as well as infectious and inflammatory etiologies. diverticulosis and biliary duct dilatation. admitted. consult Pulmonary GI consulted Cardiology.consulted Home meds, DVT prophylaxis. Full code. po pesid bid echo pending 27 min pt exam, chart review, > 50% of time spent on exam, chart review, pt care coordination Vitals Vitals Vital Signs Date Time Temp Pulse Resp B/P (MAP) Pulse Ox O2 Delivery O2 Flow Rate FiO2 07/29/19 07:53 98.8 77 18 164/67 (99) 98 Room Air 98.8 Physical Exam General: Alert, Oriented X3, Cooperative, No acute distress Heart: Regular rate Lungs: Clear Abdomen: Normal bowel sounds Extremities: No clubbing, No cyanosis FINAL DIAGNOSIS Problems Medical Problems: (1) Abdominal pain Status: Acute (2) Pericardial effusion Status: Acute Brief Hospital Course Ms. Shah is a 73 old [sex] who presented with [ ] CONDITION AT DISCHARGE: Improved Discharge Medications Current Medications Morphine Sulfate (Morphine Sulfate) 2 mg PRN Q15MIN PRN IV/SQ PAIN GREATER THAN 3/10 Last administered on 07/27/19at 07:42; Start 07/27/19 at 07:45; Stop 07/28/19 at 07:44; Status DC Sodium Chloride 1,000 ml @ 1,000 mls/hr Q1H IV Last administered on 07/27/19at 07:41; Start 07/27/19 at 07:32; Stop 07/27/19 at 08:31; Status DC Ondansetron HCl (Zofran) 4 mg 1X ONCE IV Last administered on 07/27/19at 07:42; Start 07/27/19 at 07:45; Stop 07/27/19 at 07:46; Status DC Hydromorphone HCl (Dilaudid) 0.5 mg 1X ONCE IV Last administered on 07/27/19at 08:05; Start 07/27/19 at 08:15; Stop 07/27/19 at 08:16; Status DC Iohexol (Omnipaque 300 Mg/ml) 75 ml 1X ONCE IV Last administered on 07/27/19at 09:45; Start 07/27/19 at 09:45; Stop 07/27/19 at 09:46; Status DC Info (CONTRAST GIVEN -- Rx MONITORING) 1 each PRN DAILY PRN MC SEE COMMENTS; Start 07/27/19 at 09:45; Stop 07/29/19 at 09:44; Status DC Ondansetron HCl (Zofran) 4 mg PRN Q8HRS PRN IV NAUSEA/VOMITING Last administered on 07/28/19at 09:58; Start 07/27/19 at 11:00; Stop 07/28/19 at 10:59; Status DC Fentanyl Citrate (Fentanyl 2ml Vial) 50 mcg PRN Q2HRS PRN IV PAIN Last administered on 07/29/19at 12:38; Start 07/27/19 at 11:00 Acetaminophen (Tylenol) 650 mg PRN Q4HRS PRN PO FEVER; Start 07/27/19 at 11:00; Stop 07/28/19 at 10:59; Status DC Calcium Carbonate/ Glycine (Tums) 500 mg PRN AFTMEALHC PRN PO INDIGESTION; Start 07/27/19 at 12:30 Famotidine (Pepcid) 20 mg BID PO Last administered on 07/29/19at 09:43; Start 07/27/19 at 13:00 Active Scripts Active Vital Signs Vital Signs Date Time Temp Pulse Resp B/P (MAP) Pulse Ox O2 Delivery O2 Flow Rate FiO2 07/29/19 12:38 16 Room Air 07/29/19 11:35 98.2 78 161/73 (102) 97 98.2 Labs Laboratory Tests Test 07/28/19 05:44 White Blood Count 5.5 x10^3/uL (4.0-11.0) Red Blood Count 4.46 x10^6/uL (3.50-5.40) Hemoglobin 14.3 g/dL (12.0-15.5) Hematocrit 41.0 % (36.0-47.0) Mean Corpuscular Volume 92 fL (79-100) Mean Corpuscular Hemoglobin 32 pg (25-35) Mean Corpuscular Hemoglobin Concent 35 g/dL (31-37) Red Cell Distribution Width 13.3 % (11.5-14.5) Platelet Count 183 x10^3/uL (140-400) Neutrophils (%) (Auto) 74 % (31-73) Lymphocytes (%) (Auto) 18 % (24-48) Monocytes (%) (Auto) 6 % (0-9) Eosinophils (%) (Auto) 2 % (0-3) Basophils (%) (Auto) 0 % (0-3) Neutrophils # (Auto) 4.1 x10^3/uL (1.8-7.7) Lymphocytes # (Auto) 1.0 x10^3/uL (1.0-4.8) Monocytes # (Auto) 0.3 x10^3/uL (0.0-1.1) Eosinophils # (Auto) 0.1 x10^3/uL (0.0-0.7) Basophils # (Auto) 0.0 x10^3/uL (0.0-0.2) Sodium Level 141 mmol/L (136-145) Potassium Level 4.0 mmol/L (3.5-5.1) Chloride Level 103 mmol/L (98-107) Carbon Dioxide Level 31 mmol/L (21-32) Anion Gap 7 (6-14) Blood Urea Nitrogen 13 mg/dL (7-20) Creatinine 0.9 mg/dL (0.6-1.0) Estimated GFR (Cockcroft-Gault) 61.2 Glucose Level 106 mg/dL (70-99) Calcium Level 9.2 mg/dL (8.5-10.1) Allergies Allergies Coded Allergies Type Severity Reaction Last Updated Verified Sulfa (Sulfonamide Antibiotics) Allergy Intermediate 06/08/16 Yes Disposition/Orders: D/C to Home CHECO WATKINS MD Jul 29, 2019 14:08
[2019-07-29 15:00] VITALS: BP 134/76
--- NOTE | 2019-07-29 17:39 | PDOC ---
PROGRESS NOTES Subjective Subjective Patient seen and examined Objective Objective Vital Signs Date Time Temp Pulse Resp B/P (MAP) Pulse Ox O2 Delivery O2 Flow Rate FiO2 07/29/19 15:00 98.2 84 18 134/76 (95) 96 Room Air 98.2 Intake and Output 07/29/19 07:00 Intake Total 300 ml Output Total 0 ml Balance 300 ml Intake Oral 300 ml Output Urine Total 0 ml # Voids 2 Physical Exam Abdomen: Normal bowel sounds Heart: Regular rate General: No acute distress Lungs: Other (slightly decreased breath sounds) Assessment Assessment Problems Medical Problems: (1) Abdominal pain Status: Acute (2) Pericardial effusion Status: Acute 1. Abdominal pain. The patient's pain has continued to improve. Workup as per the GI service. 2. Small pericardial effusion seen on CT scanning. Patient denies chest pain or shortness of breath. ECHO shows intact LV systolic function and no significant pericardial effusion. Comment Review of Relevant I have reviewed the following items malika (where applicable) has been applied. Labs Laboratory Tests Test 07/28/19 05:44 White Blood Count 5.5 x10^3/uL (4.0-11.0) Red Blood Count 4.46 x10^6/uL (3.50-5.40) Hemoglobin 14.3 g/dL (12.0-15.5) Hematocrit 41.0 % (36.0-47.0) Mean Corpuscular Volume 92 fL (79-100) Mean Corpuscular Hemoglobin 32 pg (25-35) Mean Corpuscular Hemoglobin Concent 35 g/dL (31-37) Red Cell Distribution Width 13.3 % (11.5-14.5) Platelet Count 183 x10^3/uL (140-400) Neutrophils (%) (Auto) 74 % (31-73) Lymphocytes (%) (Auto) 18 % (24-48) Monocytes (%) (Auto) 6 % (0-9) Eosinophils (%) (Auto) 2 % (0-3) Basophils (%) (Auto) 0 % (0-3) Neutrophils # (Auto) 4.1 x10^3/uL (1.8-7.7) Lymphocytes # (Auto) 1.0 x10^3/uL (1.0-4.8) Monocytes # (Auto) 0.3 x10^3/uL (0.0-1.1) Eosinophils # (Auto) 0.1 x10^3/uL (0.0-0.7) Basophils # (Auto) 0.0 x10^3/uL (0.0-0.2) Sodium Level 141 mmol/L (136-145) Potassium Level 4.0 mmol/L (3.5-5.1) Chloride Level 103 mmol/L (98-107) Carbon Dioxide Level 31 mmol/L (21-32) Anion Gap 7 (6-14) Blood Urea Nitrogen 13 mg/dL (7-20) Creatinine 0.9 mg/dL (0.6-1.0) Estimated GFR (Cockcroft-Gault) 61.2 Glucose Level 106 mg/dL (70-99) Calcium Level 9.2 mg/dL (8.5-10.1) Medications Current Medications Morphine Sulfate (Morphine Sulfate) 2 mg PRN Q15MIN PRN IV/SQ PAIN GREATER THAN 3/10 Last administered on 07/27/19at 07:42; Start 07/27/19 at 07:45; Stop 07/28/19 at 07:44; Status DC Sodium Chloride 1,000 ml @ 1,000 mls/hr Q1H IV Last administered on 07/27/19at 07:41; Start 07/27/19 at 07:32; Stop 07/27/19 at 08:31; Status DC Ondansetron HCl (Zofran) 4 mg 1X ONCE IV Last administered on 07/27/19at 07:42; Start 07/27/19 at 07:45; Stop 07/27/19 at 07:46; Status DC Hydromorphone HCl (Dilaudid) 0.5 mg 1X ONCE IV Last administered on 07/27/19at 08:05; Start 07/27/19 at 08:15; Stop 07/27/19 at 08:16; Status DC Iohexol (Omnipaque 300 Mg/ml) 75 ml 1X ONCE IV Last administered on 07/27/19at 09:45; Start 07/27/19 at 09:45; Stop 07/27/19 at 09:46; Status DC Info (CONTRAST GIVEN -- Rx MONITORING) 1 each PRN DAILY PRN MC SEE COMMENTS; Start 07/27/19 at 09:45; Stop 07/29/19 at 09:44; Status DC Ondansetron HCl (Zofran) 4 mg PRN Q8HRS PRN IV NAUSEA/VOMITING Last administered on 07/28/19at 09:58; Start 07/27/19 at 11:00; Stop 07/28/19 at 10:59; Status DC Fentanyl Citrate (Fentanyl 2ml Vial) 50 mcg PRN Q2HRS PRN IV PAIN Last administered on 07/29/19at 12:38; Start 07/27/19 at 11:00 Acetaminophen (Tylenol) 650 mg PRN Q4HRS PRN PO FEVER; Start 07/27/19 at 11:00; Stop 07/28/19 at 10:59; Status DC Calcium Carbonate/ Glycine (Tums) 500 mg PRN AFTMEALHC PRN PO INDIGESTION; Start 07/27/19 at 12:30 Famotidine (Pepcid) 20 mg BID PO Last administered on 07/29/19at 09:43; Start 07/27/19 at 13:00 Active Scripts Active Vitals/I & O Vital Sign - Last 24 Hours 07/28/19 07/28/19 07/29/19 07/29/19 19:05 23:05 03:00 03:10 Temp 98.0 97.6 98.9 98.0 97.6 98.9 Pulse 82 87 74 Resp 17 16 17 B/P (MAP) 163/88 (113) 134/54 (80) 149/81 (103) Pulse Ox 96 99 99 97 O2 Delivery Room Air Room Air Room Air Room Air 07/29/19 07/29/19 07/29/19 07/29/19 03:30 07:53 08:10 11:35 Temp 98.8 98.2 98.8 98.2 Pulse 77 78 Resp 16 18 18 B/P (MAP) 164/67 (99) 161/73 (102) Pulse Ox 99 98 97 O2 Delivery Room Air Room Air Room Air Room Air 07/29/19 07/29/19 07/29/19 12:38 13:10 15:00 Temp 98.2 98.2 Pulse 84 Resp 16 16 18 B/P (MAP) 134/76 (95) Pulse Ox 96 O2 Delivery Room Air Room Air Room Air l Intake and Output 07/28/19 07/28/19 07/29/19 15:00 23:00 07:00 Intake Total 300 ml Output Total 0 ml 0 ml Balance 0 ml 0 ml 300 ml JOHNY CHE MD Jul 29, 2019 17:39
[2019-07-29 19:50] VITALS: BP 150/84
[2019-07-29 23:30] VITALS: BP 147/72
[2019-07-30] MEDS: fentaNYL PF VIAL 100 MCG/2 ML VIAL IV PRN (01:23)
[2019-07-30 07:15] VITALS: BP 147/72
--- NOTE | 2019-07-30 07:17 | PDOC ---
PROGRESS NOTES History of Present Illness History of Present Illness DISCHARGE DX ======== Abdominal pain pericardial effusion , SMALL pulmonary nodules, Small right lower lobe pulmonary nodules, the largest of which measures 9 mm. These are new compared to the prior study. The differential includes neoplastic as well as infectious and inflammatory etiologies. diverticulosis and biliary duct dilatation. .ECHO shows intact LV systolic function and no significant pericardial effusion. admitted. consult Pulmonary GI consulted Cardiology.consulted Home meds, DVT prophylaxis. Full code. po pesid bid echo REVIEWED 37 min pt exam, chart review D/C PLANNING , > 50% of time spent on exam, chart review, pt care coordination Vitals Vitals Vital Signs Date Time Temp Pulse Resp B/P (MAP) Pulse Ox O2 Delivery O2 Flow Rate FiO2 07/30/19 03:21 16 Room Air 07/29/19 23:30 97.9 81 147/72 (97) 97 97.9 Physical Exam General: Alert, Cooperative, No acute distress Heart: Regular rate, Normal S1, Normal S2 Lungs: Clear Abdomen: Normal bowel sounds, No tenderness Extremities: No clubbing, No cyanosis, No edema Skin: No breakdown, No significant lesion Assessment and Plan Assessmemt and Plan Problems Medical Problems: (1) Abdominal pain Status: Acute (2) Pericardial effusion Status: Acute Comment Review of Relevant I have reviewed the following items malika (where applicable) has been applied. Medications Current Medications Morphine Sulfate (Morphine Sulfate) 2 mg PRN Q15MIN PRN IV/SQ PAIN GREATER THAN 3/10 Last administered on 07/27/19at 07:42; Start 07/27/19 at 07:45; Stop 07/28/19 at 07:44; Status DC Sodium Chloride 1,000 ml @ 1,000 mls/hr Q1H IV Last administered on 07/27/19at 07:41; Start 07/27/19 at 07:32; Stop 07/27/19 at 08:31; Status DC Ondansetron HCl (Zofran) 4 mg 1X ONCE IV Last administered on 07/27/19at 07:42; Start 07/27/19 at 07:45; Stop 07/27/19 at 07:46; Status DC Hydromorphone HCl (Dilaudid) 0.5 mg 1X ONCE IV Last administered on 07/27/19at 08:05; Start 07/27/19 at 08:15; Stop 07/27/19 at 08:16; Status DC Iohexol (Omnipaque 300 Mg/ml) 75 ml 1X ONCE IV Last administered on 07/27/19at 09:45; Start 07/27/19 at 09:45; Stop 07/27/19 at 09:46; Status DC Info (CONTRAST GIVEN -- Rx MONITORING) 1 each PRN DAILY PRN MC SEE COMMENTS; Start 07/27/19 at 09:45; Stop 07/29/19 at 09:44; Status DC Ondansetron HCl (Zofran) 4 mg PRN Q8HRS PRN IV NAUSEA/VOMITING Last administered on 07/28/19at 09:58; Start 07/27/19 at 11:00; Stop 07/28/19 at 10:59; Status DC Fentanyl Citrate (Fentanyl 2ml Vial) 50 mcg PRN Q2HRS PRN IV PAIN Last administered on 07/30/19at 01:23; Start 07/27/19 at 11:00 Acetaminophen (Tylenol) 650 mg PRN Q4HRS PRN PO FEVER; Start 07/27/19 at 11:00; Stop 07/28/19 at 10:59; Status DC Calcium Carbonate/ Glycine (Tums) 500 mg PRN AFTMEALHC PRN PO INDIGESTION; Start 07/27/19 at 12:30 Famotidine (Pepcid) 20 mg BID PO Last administered on 07/29/19at 20:52; Start 07/27/19 at 13:00 Active Scripts Active Vitals/I & O Vital Sign - Last 24 Hours 07/29/19 07/29/19 07/29/19 07/29/19 07:53 08:10 11:35 12:38 Temp 98.8 98.2 98.8 98.2 Pulse 77 78 Resp 18 18 16 B/P (MAP) 164/67 (99) 161/73 (102) Pulse Ox 98 97 O2 Delivery Room Air Room Air Room Air Room Air 07/29/19 07/29/19 07/29/19 07/29/19 13:10 15:00 19:50 20:00 Temp 98.2 97.9 98.2 97.9 Pulse 84 86 Resp 16 18 18 B/P (MAP) 134/76 (95) 150/84 (106) Pulse Ox 96 96 O2 Delivery Room Air Room Air Room Air Room Air 07/29/19 07/30/19 23:30 03:21 Temp 97.9 97.9 Pulse 81 Resp 18 16 B/P (MAP) 147/72 (97) Pulse Ox 97 O2 Delivery Room Air Room Air Intake and Output 07/29/19 07/29/19 07/30/19 15:00 23:00 07:00 Intake Total 200 ml 240 ml 240 ml Output Total 1 ml Balance 200 ml 240 ml 239 ml CHECO WATKINS MD Jul 30, 2019 07:17
[2019-07-30] MEDS: FAMOTIDINE 20 MG TABLET. PO SCH (08:29)
--- NOTE | 2019-07-30 09:20 | CARD ---
MR#: [id number] Date of Study: 07/28/2019 Ordering Physician: DANTE MAIN, Referring Physician: DANTE MAIN, Tech: Mary Muniz RDCS APPROVED REPORT EXAM: Two-dimensional and M-mode echocardiogram with Doppler and color Doppler. Other Information Quality : GoodHR: 164bpm Rhythm : Tachycardia INDICATION Pericardial Effusion 2D DIMENSIONS Left Atrium(2D)2.8 (1.6-4.0cm)IVSd1.0 (0.7-1.1cm) Aortic Root(2D)2.2 (2.0-3.7cm)LVDd3.5 (3.9-5.9cm) LVOT Diameter1.8 (1.8-2.4cm)PWd0.9 (0.7-1.1cm) LA Cmqdmn29 (18-58mL)LVDs2.1 (2.5-4.0cm) FS (%) 39.8 %SV37.4 ml CO6.1 L/min Aortic Valve AoV Peak Alex.100.1cm/sAoV VTI19.7cm AO Peak GR.4.0mmHgLVOT VTI 16.20cm AO Mean GR.3mmHg Mitral Valve MV E Emfnwdhw82.7cm/sMV DECEL [id number] MV A Gcoztqkh94.7cm/sE/A Ratio0.9 MV A [id number] LEFT VENTRICLE The left ventricle cavity is mildly decreased. There is borderline concentric left ventricular hypert rophy. The left ventricular systolic function is normal. The ejection fraction is 60-65%. There is no rmal LV segmental wall motion. Transmitral Doppler flow pattern is Grade I-abnormal relaxation patter n. No left ventricle thrombus noted on this study. There is no ventricular septal defect visualized. There is no left ventricular aneurysm. There is no mass noted in the left ventricle. RIGHT VENTRICLE The right ventricle is normal size. There is normal right ventricular wall thickness. The right ventr icular systolic function is normal. ATRIA The left atrium size is normal. The right atrium size is normal. The interatrial septum is intact wit h no evidence for an atrial septal defect or patent foramen ovale as noted on 2-D or Doppler imaging. AORTIC VALVE The aortic valve is normal in structure and function. Doppler and Color Flow revealed no significant aortic regurgitation. There is no significant aortic valvular stenosis. There is no aortic valvular v egetation. MITRAL VALVE The mitral valve is normal in structure and function. There is no evidence of mitral valve prolapse. There is no mitral valve stenosis. Doppler and Color-flow revealed trace mitral regurgitation. TRICUSPID VALVE The tricuspid valve is normal in structure and function. Doppler and Color Flow revealed trace tricus pid regurgitation. There is no tricuspid valve prolapse or vegetation. There is no tricuspid valve st enosis. PULMONIC VALVE The pulmonary valve is normal in structure and function. Doppler and Color Flow revealed mild pulmoni c valvular regurgitation. There is no pulmonic valvular stenosis. GREAT VESSELS The aortic root is normal in size. The IVC is normal in size and collapses >50% with inspiration. PERICARDIAL EFFUSION There is no evidence of significant pericardial effusion. Critical Notification Critical Value: No <Conclusion> The left ventricle cavity is mildly decreased. The left ventricular systolic function is normal. The ejection fraction is 60-65%. There is borderline concentric left ventricular hypertrophy. There is no significant aortic valvular stenosis. Doppler and Color Flow revealed no significant aortic regurgitation. Doppler and Color-flow revealed trace mitral regurgitation. Doppler and Color Flow revealed trace tricuspid regurgitation. Signed by : Dante Main MD Electronically Approved : 07/28/2019 18:53:25
[2019-07-30 11:02] VITALS: BP 117/77
--- NOTE | 2019-07-30 11:11 | PDOC ---
Objective: Objective: D/w nurse earlier this morning - she has requested a hip x-ray - unaware of any GI complaints - ?discharge today Vital Signs: Vital Signs Date Time Temp Pulse Resp B/P (MAP) Pulse Ox O2 Delivery O2 Flow Rate FiO2 07/30/19 08:00 Room Air 07/30/19 07:15 97.6 78 18 147/72 (97) 96 97.6 Imaging: Echo 07/28 <Conclusion> The left ventricle cavity is mildly decreased. The left ventricular systolic function is normal. The ejection fraction is 60-65%. There is borderline concentric left ventricular hypertrophy. There is no significant aortic valvular stenosis. Doppler and Color Flow revealed no significant aortic regurgitation. Doppler and Color-flow revealed trace mitral regurgitation. Doppler and Color Flow revealed trace tricuspid regurgitation. PE: GEN: in restroom with door shut - "I just got in here" A/P: Abd pain, nausea - resolved -- DC per primary. PHILLIP WINSTON Jul 30, 2019 11:11
[2019-07-30] MEDS ORDERED: CALC200T23 PO (11:30)
[2019-07-30] MEDS ORDERED: FAMO20TA5 PO (11:30)
--- NOTE | 2019-07-30 11:31 | DISCH ---
DISCHARGE INSTRUCTIONS Condition on Discharge Condition on Discharge: Stable Activity After Discharge Activity Instructions for Disc: Activity as tolerated Lifting Instructions after Dis: No heavy lifting, No pulling or pushing Driving Instructions after Dis: Do not drive Weight Bearing Status after Di: As tolerated Diet after Discharge Diet after Discharge: Cardiac Checks after Discharge Checks after discharge: Check blood press - daily Contacting the DRPrtii after DC Call your doctor for: If your condition worsens Treatment/Equipment after DC Adaptive Equipment Issued: None CHECO WATKINS MD Jul 30, 2019 11:31
--- NOTE | 2019-07-30 15:03 | NUR ---
Pt discharged to home with self care. Went over discharge teaching with pt and family member. Pt taken out by wheelchair with transportation provided by family.
== END 2019-07-30 14:44 | disposition home or self-care (01) | DRG 392 ==
LOC: ER 07:24 → 6 SOUTH 10:54
PROVIDERS: ADMIT Internal Medicine; ATTEND Internal Medicine
DX: K29.70 Gastritis, unspecified, without bleeding (principal); I31.3 Pericardial effusion (noninflammatory); K57.30 Diverticulosis of large intestine without perforation or abscess without bleeding; K83.8 Other specified diseases of biliary tract; F32.9 Major depressive disorder, single episode, unspecified; F41.9 Anxiety disorder, unspecified; E03.9 Hypothyroidism, unspecified; J45.909 Unspecified asthma, uncomplicated; F20.9 Schizophrenia, unspecified; I10 Essential (primary) hypertension; Z85.828 Personal history of other malignant neoplasm of skin; Z98.49 Cataract extraction status, unspecified eye; Z88.2 Allergy status to sulfonamides; Z92.21 Personal history of antineoplastic chemotherapy; Z82.49 Family history of ischemic heart disease and other diseases of the circulatory system; Z82.5 Family history of asthma and other chronic lower respiratory diseases; Z85.72 Personal history of non-Hodgkin lymphomas; Z90.6 Acquired absence of other parts of urinary tract; Z90.49 Acquired absence of other specified parts of digestive tract
CPT/HCPCS: 36415; 71250; 74177; 80048; 80053; 81001; 83690; 84484; 85025; 93005; 93306; 96361; 96374; 96375; J1170; J2270; J2405; J3010; J7030; Q9967; 99285-25; G0378

== ENCOUNTER 2020-04-09 12:55 | Emergency (ER) | payer MEDICARE, BC ==
[~2020-04-09] VITALS: Ht 162.6 cm; Wt 52.0 kg
[~2020-04-09 12:55] MED LIST changes: +CALC200T23 PO; +DOXY-96 PO; -DOXY100T9 PO; +FAMO20TA5 PO
[2020-04-09 13:23] VITALS: BP 161/76
[2020-04-09] MEDS ORDERED: ERYT1OIN6 OD (13:39)
--- NOTE | 2020-04-09 13:40 | PHYS DOC ---
Past Medical History Past Medical History: Anxiety, Cancer, Depression, Hypothyroid, Schizophrenia, Other Additional Past Medical Histor: LYMPHOMA, "VOCAL CORD ISSUES",EXTRAPYRAMIDAL MOVEMENTS (SHAHZAD WILKINS APRN) Past Surgical History: Appendectomy, Cholecystectomy, Tonsillectomy, Other Additional Past Surgical Histo: BACK SX, CATARACT, SKIN CA REMOVAL 09/2017 (SHAHZAD WILKINS APRN) Smoking Status: Never Smoker Alcohol Use: None Drug Use: None (SHAHZAD WILKINS APRN) General Adult EDM: Chief Complaint: EYE PROBLEMS HPI: HPI: Patient is a 74 year old female who presents the emergency department with complaints of right eye drainage and crusting for the last 3 days. She denies any injury to the affected eye. She denies any itching, burning, tearing, or vision changes in the affected eye. She currently rates her pain a 2 out of 10 on the pain scale, she denies any alleviating factors. She denies any fever, cough, sore throat, shortness of breath, nausea, vomiting, diarrhea, or other complaints. (SHAHZAD WILKINS APRN) Review of Systems: Review of Systems: Complete review of systems is negative unless otherwise documented in the HPI (SHAHZAD WILKINS APRN) Heart Score: Risk Factors: Risk Factors: DM, Current or recent (<one month) smoker, HTN, HLP, family history of CAD, obesity. Risk Scores: Score 0 - 3: 2.5% MACE over next 6 weeks - Discharge Home Score 4 - 6: 20.3% MACE over next 6 weeks - Admit for Clinical Observation Score 7 - 10: 72.7% MACE over next 6 weeks - Early Invasive Strategies (SHAHZAD WILKINS APRN) Allergies: Allergies: Allergies Coded Allergies Type Severity Reaction Last Updated Verified Sulfa (Sulfonamide Antibiotics) Allergy Intermediate 06/08/16 Yes (SHAHZAD WILKINS APRN) Physical Exam: PE: Constitutional: Well developed, well nourished, no acute distress, non-toxic appearance. [] HENT: Normocephalic, atraumatic, bilateral external ears normal, nose normal. [] Eyes: PERRLA, EOMI, left eye conjunctiva normal; right eye conjunctive a injected with purulent drainage noted on eyelids and mild erythema Neck: Normal range of motion, no stridor. [] Cardiovascular:Heart rate regular rhythm Lungs & Thorax: Respirations even and unlabored, no retractions, no respiratory distress Skin: Warm, dry Extremities: No cyanosis, ROM intact, Neurologic: Alert and oriented X 3, no focal deficits noted. [] Psychologic: Affect normal, judgement normal, mood normal. [] (SHAHZAD WILKINS APRN) Current Patient Data: Vital Signs: Vital Signs Date Time Temp Pulse Resp B/P (MAP) Pulse Ox O2 Delivery O2 Flow Rate FiO2 04/09/20 13:23 97.1 88 18 161/76 (104) 99 Room Air 97.1 (SHAHZAD WILKINS APRN) EKG: EKG: [] (SHAHZAD WILKINS APRN) Radiology/Procedures: Radiology/Procedures: [] (SHAHZAD WILKINS APRN) Course & Med Decision Making: Course & Med Decision Making Pertinent Labs and Imaging studies reviewed. (See chart for details) [] (SHAHZAD WILKINS APRN) Dragon Disclaimer: Dragon Disclaimer: This electronic medical record was generated, in whole or in part, using a voice recognition dictation system. (SHAHZAD WILKINS APRN) Departure Departure Impression: Primary Impression: Acute bacterial conjunctivitis of right eye Disposition: 01 HOME, SELF-CARE Condition: STABLE Referrals: DEYSI OROPEZA (PCP) Patient Instructions: Bacterial Conjunctivitis, [id number]-[id number] Additional Instructions: Fill the prescription(s) and use as directed. Apply warm, moist washcloths to eyes needed for comfort. Recommend use of baby shampoo to wash eyelids. Follow- up with your primary care doctor in 1-2 days. Return to the emergency room if your symptoms worsen. Scripts Erythromycin Base (Erythromycin) 1 Gm Oint...g. 0.5 INCH OD QID for 5 Days, #1 TUBE 0 Refills Prov: SHAHZAD WILKINS APRN 04/09/20 Justicifation of Admission Dx: Justifications for Admission: Justification of Admission Dx: N/A (SHAHZAD WILKINS APRN) Attending Signature Attending Signature I have reviewed the PA/TYPE CASTER's note and plan of care. I was available for consultation as needed during the patient's visit in the emergency department. I agree with the clinical impression, plan, and disposition. (NATTY COMBS DO) SHAHZAD WILKINS APRN Apr 09, 2020 13:40 NATTY COMBS DO Apr 09, 2020 15:38
[2020-04-09] MEDS ORDERED: ERYTHROMYCIN 0.5% OPHTH OINTMENT 1GM TUBE. OD ONE (13:45)
== END 2020-04-09 14:31 | disposition home or self-care (01) ==
LOC: ER 12:55
DX: H10.31 Unspecified acute conjunctivitis, right eye (principal); R23.4 Changes in skin texture; F41.9 Anxiety disorder, unspecified; F32.9 Major depressive disorder, single episode, unspecified; E03.9 Hypothyroidism, unspecified; F20.9 Schizophrenia, unspecified; Z85.9 Personal history of malignant neoplasm, unspecified; Z90.89 Acquired absence of other organs; Z90.49 Acquired absence of other specified parts of digestive tract; Z98.890 Other specified postprocedural states; Z88.2 Allergy status to sulfonamides
CPT/HCPCS: 99283

== ENCOUNTER 2020-06-12 11:56 | Emergency (ER) | payer MEDICARE, BC ==
[~2020-06-12] VITALS: Ht 162.6 cm; Wt 52.2 kg
[~2020-06-12 11:56] MED LIST changes: +ERYT1OIN6 OD
[2020-06-12 12:11] VITALS: BP 170/87
[2020-06-12] MEDS ORDERED: ERYT1OIN6 OP (12:49)
--- NOTE | 2020-06-12 12:50 | PHYS DOC ---
Past Medical History Past Medical History: Anxiety, Cancer, Depression, Hypothyroid, Schizophrenia, Other Additional Past Medical Histor: LYMPHOMA, "VOCAL CORD ISSUES",EXTRAPYRAMIDAL MOVEMENTS Past Surgical History: Appendectomy, Cholecystectomy, Tonsillectomy, Other Additional Past Surgical Histo: BACK SX, CATARACT, SKIN CA REMOVAL 09/2017 Smoking Status: Never Smoker Alcohol Use: None Drug Use: None General Adult EDM: Chief Complaint: EYE PROBLEMS HPI: HPI: Patient is a 74 year old female who presents with bilateral itching of the eyes, redness, burning and discharge x1 week. Patient denies fever, vision loss, headache, dizziness, injury to her eyes, abdominal pain, nausea, vomiting, diarrhea, cough. She rates her discomfort at a 6 out of 10. Review of Systems: Review of Systems: Constitutional: Denies fever or chills. [] Eyes: Denies change in visual acuity. Bilateral conjunctivae are redness with discharge, itching and burning. [] HENT: Denies nasal congestion or sore throat. [] Respiratory: Denies cough or shortness of breath. [] Cardiovascular: Denies chest pain or edema. [] GI: Denies abdominal pain, nausea, vomiting, bloody stools or diarrhea. [] : Denies dysuria. [] Musculoskeletal: Denies back pain or joint pain. [] Integument: Denies rash. [] Neurologic: Denies headache, focal weakness or sensory changes. [] Endocrine: Denies polyuria or polydipsia. [] Lymphatic: Denies swollen glands. [] Psychiatric: Denies depression or anxiety. [] Heart Score: Risk Factors: Risk Factors: DM, Current or recent (<one month) smoker, HTN, HLP, family history of CAD, obesity. Risk Scores: Score 0 - 3: 2.5% MACE over next 6 weeks - Discharge Home Score 4 - 6: 20.3% MACE over next 6 weeks - Admit for Clinical Observation Score 7 - 10: 72.7% MACE over next 6 weeks - Early Invasive Strategies Allergies: Allergies: Allergies Coded Allergies Type Severity Reaction Last Updated Verified Sulfa (Sulfonamide Antibiotics) Allergy Intermediate 06/08/16 Yes Physical Exam: PE: Constitutional: Well developed, well nourished, no acute distress, non-toxic appearance. [] HENT: Normocephalic, atraumatic, bilateral external ears normal, oropharynx m oist, no oral exudates, nose normal. [] Eyes: PERRLA, EOMI, conjunctiva redness, yellow/white discharge. [] Neck: Normal range of motion, no tenderness, supple, no stridor. [] Cardiovascular:Heart rate regular rhythm, no murmur [] Lungs & Thorax: Bilateral breath sounds clear to auscultation [] Abdomen: Bowel sounds normal, soft, no tenderness, no masses, no pulsatile masses. [] Skin: Warm, dry, no erythema, no rash. [] Back: No tenderness, no CVA tenderness. [] Extremities: No tenderness, no cyanosis, no clubbing, ROM intact, no edema. [] Neurologic: Alert and oriented X 3, normal motor function, normal sensory function, no focal deficits noted. [] Psychologic: Affect normal, judgement normal, mood normal. [] EKG: EKG: [] Radiology/Procedures: Radiology/Procedures: [] Course & Med Decision Making: Course & Med Decision Making Pertinent Labs and Imaging studies reviewed. (See chart for details) Bilateral conjunctivitis. Lateral scleral redness. There is white/yellow discharge. Alert and oriented x4. Speaks in full clear sentences. She states she sees Dr. Wagoner for her eye doctor. Ambulatory with a steady gait. There is no swelling to the eyelids or around the eyes. No redness around the e yes no cellulitis. [] Dragon Disclaimer: Dragon Disclaimer: This electronic medical record was generated, in whole or in part, using a voice recognition dictation system. Departure Departure Impression: Primary Impression: Conjunctivitis Qualified Codes: H10.33 - Unspecified acute conjunctivitis, bilateral Disposition: 01 HOME, SELF-CARE Condition: STABLE Referrals: DEYSI OROPEZA (PCP) Sybil WAGONER MD Patient Instructions: Conjunctivitis (Viral and Bacterial) Additional Instructions: Follow-up with your eye doctor soon as possible. By eyelid cleaner touch up worker off the counter at the pharmacy. Use medications as prescribed. Scripts Erythromycin Base (Erythromycin) 1 Gm Oint...g. 1 GM OP QID for 10 Days, #[facility] Prov: ZAMZAM JEFFERSON FLAG SIGNALMAN 06/12/20 Justicifation of Admission Dx: Justifications for Admission: Justification of Admission Dx: N/A ZAMZAM JEFFERSON FLAG SIGNALMAN Jun 12, 2020 12:49
== END 2020-06-12 13:37 | disposition home or self-care (01) ==
LOC: ER 11:56
DX: H10.33 Unspecified acute conjunctivitis, bilateral (principal); L29.9 Pruritus, unspecified; F41.9 Anxiety disorder, unspecified; F32.9 Major depressive disorder, single episode, unspecified; E03.9 Hypothyroidism, unspecified; F20.9 Schizophrenia, unspecified; Z90.89 Acquired absence of other organs; Z90.49 Acquired absence of other specified parts of digestive tract; Z98.890 Other specified postprocedural states; Z88.2 Allergy status to sulfonamides
CPT/HCPCS: 99283

== ENCOUNTER 2021-04-16 08:56 | Emergency (ER) | payer MEDICARE, BC ==
[~2021-04-16] VITALS: Ht 165.1 cm; Wt 76.0 kg
[~2021-04-16 08:56] MED LIST changes: +ERYT1OIN6 OP
[2021-04-16 09:01] VITALS: BP 174/80
[2021-04-16] MEDS ORDERED: TOBR5DRO6 OD (09:44)
--- NOTE | 2021-04-16 09:45 | PHYS DOC ---
Past Medical History Past Medical History: Anxiety, Cancer, Depression, Hypothyroid, Schizophrenia, Other Additional Past Medical Histor: LYMPHOMA, "VOCAL CORD ISSUES",EXTRAPYRAMIDAL MOVEMENTS Past Surgical History: Appendectomy, Cholecystectomy, Tonsillectomy, Other Additional Past Surgical Histo: BACK SX, CATARACT, SKIN CA REMOVAL 09/2017 Smoking Status: Never Smoker Alcohol Use: Occasionally Drug Use: None General Adult EDM: Chief Complaint: EYE PROBLEMS HPI: HPI: Patient is a 75 year old female who presented to ER for evaluation of right redness with discharge for 2 days. Patient denies any fever, no headache, no cough, no eye pain. Review of Systems: Review of Systems: Constitutional: Denies fever or chills. [] Eyes: Positive for right eye irritation with redness and discharge HENT: Denies nasal congestion or sore throat. [] Respiratory: Denies cough or shortness of breath. [] Cardiovascular: Denies chest pain or edema. [] GI: Denies abdominal pain, nausea, vomiting, bloody stools or diarrhea. [] : Denies dysuria. [] Musculoskeletal: Denies back pain or joint pain. [] Integument: Denies rash. [] Neurologic: Denies headache, focal weakness or sensory changes. [] Endocrine: Denies polyuria or polydipsia. [] Lymphatic: Denies swollen glands. [] Psychiatric: Denies depression or anxiety. [] Heart Score: C/O Chest Pain: N/A Risk Factors: Risk Factors: DM, Current or recent (<one month) smoker, HTN, HLP, family history of CAD, obesity. Risk Scores: Score 0 - 3: 2.5% MACE over next 6 weeks - Discharge Home Score 4 - 6: 20.3% MACE over next 6 weeks - Admit for Clinical Observation Score 7 - 10: 72.7% MACE over next 6 weeks - Early Invasive Strategies Allergies: Allergies: Allergies Coded Allergies Type Severity Reaction Last Updated Verified Sulfa (Sulfonamide Antibiotics) Allergy Intermediate 06/08/16 Yes Latex, Natural Rubber Allergy Unknown UNKNOWN 04/16/21 Yes Physical Exam: PE: Constitutional: Well developed, well nourished, no acute distress, non-toxic appearance. [] HENT: Normocephalic, atraumatic, bilateral external ears normal, oropharynx moist, no oral exudates, nose normal. [] Eyes: PERRLA, EOMI, right conjunctival injection, right eyelash matted with yellow discharge. Neck: Normal range of motion, no tenderness, supple, no stridor. [] Neurologic: Alert and oriented X 3, normal motor function, normal sensory function, no focal deficits noted. [] Psychologic: Affect normal, judgement normal, mood normal. [] Current Patient Data: Vital Signs: Vital Signs Date Time Temp Pulse Resp B/P (MAP) Pulse Ox O2 Delivery O2 Flow Rate FiO2 04/16/21 09:01 98.2 73 19 174/80 (111) 97 Room Air 98.2 EKG: EKG: [] Radiology/Procedures: Radiology/Procedures: [] Course & Med Decision Making: Course & Med Decision Making Pertinent Labs and Imaging studies reviewed. (See chart for details) [] Dragon Disclaimer: Dragon Disclaimer: This electronic medical record was generated, in whole or in part, using a voice recognition dictation system. Departure Departure Impression: Primary Impression: Conjunctivitis Disposition: HOME / SELF CARE / HOMELESS Condition: STABLE Referrals: DEYSI OROPEZA (PCP) Sybil WAGONER MD Please call this eye doctor today for follow up in the clinic today or Monday. Patient Instructions: Conjunctivitis (Viral and Bacterial) Additional Instructions: Thank you for visiting our Emergency Department. We appreciate you trusting us with your care. If any additional problems come up don't hesitate to return to visit us. Please follow up with your primary care provider so they can plan additional care if needed and know about the problem that you had. If symptoms worsen come back to the Emergency Department. Any concerning symptoms that start such as chest pain, shortness of air, weakness or numbness on one side of the body, running high fevers or any other concerning symptoms return to the ER. Scripts Tobramycin Ophth (TOBRAMYCIN OPHTH DROPS) 5 Ml Drops 2 DROP OD QID for 7 Days, #5 ML 0 Refills Prov: LUIS JERNIGAN DO 04/16/21 LUIS JERNIGAN DO Apr 16, 2021 09:45
== END 2021-04-16 09:57 | disposition home or self-care (01) ==
LOC: ER 08:56
DX: H10.9 Unspecified conjunctivitis (principal); E03.9 Hypothyroidism, unspecified; F20.9 Schizophrenia, unspecified; Z88.2 Allergy status to sulfonamides; Z91.040 Latex allergy status
CPT/HCPCS: 99283